=== PATIENT | female | born 1935 | race Two or more races ===

== ENCOUNTER 2019-04-01 11:23 | Inpatient (IN) | payer MEDICARE, MEDICAID ==
[~2019-04-01] VITALS: Ht 154.9 cm; Wt 60.9 kg
--- NOTE | 2019-04-01 11:45 | NUR ---
ED Nurse Note: Camilo brought in by caregiver from home due to being altered x 3 days; hx of dementia and bipolar. German speaking only. Patient awake, alert, oriented x 0. Patient does not know her name, year or place. Patient walks at home, but she needs assistance with dailiy living acitivities. Patient resting in bed with eyes closed. Regular, unlabored breathing noted. Patient has rash all over the body. Per caregiver, patient has been scratching it x 2-3 days. Reports no recent use of new drug or consuming new food. Reports no flu-like symptoms. 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 Bed in lowest position.
[2019-04-01 12:07] VITALS: BP 131/58
--- NOTE | 2019-04-01 12:40 | NUR ---
ED Nurse Note: per Bo caregiver, patient has no known allergy. [phone]
[2019-04-01] MEDS ORDERED: DiphenhydrAMINE 50mg/ml Inj IVP ONE (12:45)
[2019-04-01 12:51] LABS: APPEARANCE,URINE SLIGHTLY CLOUDY; BILIRUBIN, URINE NEGATIVE (NEGATIVE); GLUCOSE, URINE (UA) NEGATIVE (NEGATIVE); KETONES,URINE 3+ (NEGATIVE); LEUKOCYTE ESTERASE ,URINE 3+ (NEGATIVE); NITRITE,URINE NEGATIVE (NEGATIVE); PH,URINE 5 (4.5-8.0); PROTEIN,URINE 2+ (NEGATIVE); UROBILINOGEN,URINE 1 MG/DL (0.0-1.0)
[2019-04-01 12:55] LABS: HEMATOCRIT 42.5 % (37.0-47.0); HEMOGLOBIN 14.3 G/DL (12.0-16.0); MEAN CORPUSCULAR VOLUME 91 FL (80-99); PLATELET COUNT 63 K/UL (150-450); RED BLOOD COUNT 4.66 M/UL (4.20-5.40); RED CELL DISTRIBUTION WIDTH 13.7 % (11.6-14.8)
[2019-04-01 12:57] LABS: ANION GAP 8 mmol/L (5-15); BLOOD UREA NITROGEN 24 mg/dL (7-18); CALCIUM 8.6 MG/DL (8.5-10.1); CARBON DIOXIDE 33 MMOL/L (21-32); CHLORIDE 105 MMOL/L (98-107); COLOR,URINE YELLOW; CREATININE 1.1 MG/DL (0.55-1.30); POTASSIUM 3.7 MMOL/L (3.5-5.1); SODIUM 146 MMOL/L (136-145)
[2019-04-01 13:04] LABS: ALANINE AMINOTRANSFERASE 30 U/L (12-78); ALBUMIN 3.3 G/DL (3.4-5.0); ALBUMIN/GLOBULIN RATIO 0.8 (1.0-2.7); ALKALINE PHOSPHATASE 46 U/L (46-116); ASPARTATE AMINO TRANSFERASE 43 U/L (15-37); BILIRUBIN,TOTAL 0.4 MG/DL (0.2-1.0); PHOSPHORUS 3.1 MG/DL (2.5-4.9)
--- NOTE | 2019-04-01 13:10 | Emergency Room Report ---
History of Present Illness General Chief Complaint: Altered Level of Consciousness Source: Patient Present Illness HPI Disclaimer: Please note that this report is being documented using DRAGON technology. This can lead to erroneous entry secondary to incorrect interpretation by the dictating instrument. HPI: 83-year-old female presents for evaluation of altered mental status. She is primary British-speaking but son is present to provide history. She lives with her son who notes 3 days of worsening confusion. She has baseline dementia however she no longer remember some her children she has, notes some ataxia in her gait and believes he is a fall risk. He notes foul-smelling urine over the past few days. Denies fever, vomiting or diarrhea. PMH: Dementia, hypertension, bipolar, heart disease PSH: Reviewed Allergies: None reported Social Hx: None reported Allergies: Coded Allergies: No Known Allergies (Unverified , 04/01/19) Nursing Documentation-PMH Past Medical History: No History, Except For Review of Systems All Other Systems: limited - Could not obtain from patient. Physical Exam Vital Signs Date Time Temp Pulse Resp B/P (MAP) Pulse Ox O2 Delivery O2 Flow Rate FiO2 04/01/19 11:32 97.3 49 19 149/64 (92) 97 Room Air General: Awake, disoriented, somewhat agitated, trying to climb out of bed HEENT: NC/AT. EOMI. no nystagmus. PERRLA. Dry mucous membranes. Cardiovascular: RRR. S1 and S2 normal. No murmur appreciated Resp: Normal work of breathing. No cough, wheezing or crackles appreciated Abdomen: Abdomen is soft, nondistended. Tenderness to palpation in the lower pelvis. No rebound. No mass appreciated. Skin: Intact. No abrasions, laceration or rash over the exposed skin MSK: Normal tone and bulk. Moving all extremities. No obvious deformity. Neuro: Awake, disoriented. Difficulty following hands. Moving all extremities with adequate strength at the major muscle groups. Sensation appears to be intact. Cannot cooperate for ataxia testing. Medical Decision Making Diagnostic Impression: Primary Impression: Altered level of consciousness Additional Impression: UTI (urinary tract infection) ER Course 83-year-old female presents for evaluation of 3 days altered mental status. Differential includes was not limited to viral syndrome, urinary tract infection , occult head injury, electrolyte abnormality, dehydration, worsening dementia. We will start broad metabolic infectious work-up. Patient arrives with stable vital signs though slightly bradycardic. Laboratory Tests Test 04/01/19 12:00 04/01/19 15:30 White Blood Count 4.0 K/UL (4.8-10.8) L Red Blood Count 4.66 M/UL (4.20-5.40) Hemoglobin 14.3 G/DL (12.0-16.0) Hematocrit 42.5 % (37.0-47.0) Mean Corpuscular Volume 91 FL (80-99) Mean Corpuscular Hemoglobin 30.8 PG (27.0-31.0) Mean Corpuscular Hemoglobin Concent 33.7 G/DL (32.0-36.0) Red Cell Distribution Width 13.7 % (11.6-14.8) Platelet Count 63 K/UL (150-450) L Mean Platelet Volume 13.1 FL (6.5-10.1) H Neutrophils (%) (Auto) % (45.0-75.0) Lymphocytes (%) (Auto) % (20.0-45.0) Monocytes (%) (Auto) % (1.0-10.0) Eosinophils (%) (Auto) % (0.0-3.0) Basophils (%) (Auto) % (0.0-2.0) Differential Total Cells Counted 100 Neutrophils % (Manual) 71 % (45-75) Lymphocytes % (Manual) 14 % (20-45) L Monocytes % (Manual) 10 % (1-10) Eosinophils % (Manual) 5 % (0-3) H Basophils % (Manual) 0 % (0-2) Band Neutrophils 0 % (0-8) Platelet Estimate Decreased L Platelet Morphology Normal Red Blood Cell Morphology Normal Urine Color Yellow Urine Appearance Slightly cloudy Urine pH 5 (4.5-8.0) Urine Specific [place] 1.030 (1.005-1.035) Urine Protein 2+ (NEGATIVE) H Urine Glucose (UA) Negative (NEGATIVE) Urine Ketones 3+ (NEGATIVE) H Urine Blood 4+ (NEGATIVE) H Urine Nitrite Negative (NEGATIVE) Urine Bilirubin Negative (NEGATIVE) Urine Urobilinogen 1 MG/DL (0.0-1.0) H Urine Leukocyte Esterase 3+ (NEGATIVE) H Urine RBC 5-10 /HPF (0 - 2) H Urine WBC 20-30 /HPF (0 - 2) H Urine Squamous Epithelial Cells Few /LPF (NONE/OCC) Urine Bacteria Few /HPF (NONE) Urine Mucus Many /LPF (NONE/OCC) H Sodium Level 146 MMOL/L (136-145) H Potassium Level 3.7 MMOL/L (3.5-5.1) Chloride Level 105 MMOL/L (98-107) Carbon Dioxide Level 33 MMOL/L (21-32) H Anion Gap 8 mmol/L (5-15) Blood Urea Nitrogen 24 mg/dL (7-18) H Creatinine 1.1 MG/DL (0.55-1.30) Estimate Glomerular Filtration Rate mL/min (>60) Glucose Level 130 MG/DL (74-106) H Calcium Level 8.6 MG/DL (8.5-10.1) Phosphorus Level 3.1 MG/DL (2.5-4.9) Magnesium Level 2.3 MG/DL (1.8-2.4) Total Bilirubin 0.4 MG/DL (0.2-1.0) Aspartate Amino Transferase (AST) 43 U/L (15-37) H Alanine Aminotransferase (ALT) 30 U/L (12-78) Alkaline Phosphatase 46 U/L (46-116) Total Protein 7.5 G/DL (6.4-8.2) Albumin 3.3 G/DL (3.4-5.0) L Globulin 4.2 g/dL Albumin/Globulin Ratio 0.8 (1.0-2.7) L Lipase 136 U/L (73-393) Troponin I 0.000 ng/mL (0.000-0.056) EKG Diagnostic Results EKG Time: 11:51 Rate: bradycardiac Rhythm: NSR ST Segments: no acute changes Other Impression Sinus rhythm, borderline left axis, normal intervals, nonspecific ST changes Rhythm Strip Diag. Results Rhythm Strip Time: 11:51 EP Interpretation: yes Rate: 50 Rhythm: NSR, no PVC's, no ectopy Reevaluation Time: 15:00 Last Vital Signs Date Time Temp Pulse Resp B/P (MAP) Pulse Ox O2 Delivery O2 Flow Rate FiO2 04/01/19 12:07 58 14 131/58 95 Room Air 04/01/19 11:32 97.3 Reevaluation Impression Labs largely unremarkable aside from evidence of a urinary tract infection. The patient was given ceftriaxone. Her agitation did not allow her to participate in a CT scan. We will give some sedation and try again. Patient be admitted for altered mental status and treatment of urinary tract infection. 1650: CT scan shows evidence of prior vascular coiling but no acute ischemic changes or signs of trauma. Patient will be admitted for further evaluation of UTI and encephalopathy Disposition: ADMITTED INPATIENT Condition: Serious Referrals: NON PHYSICIAN (PCP) Ant Suarez MD Apr 01, 2019 13:10
[2019-04-01] MEDS ORDERED: UNOBMED (13:21)
[2019-04-01 13:30] VITALS: BP 127/97
[2019-04-01] MEDS ORDERED: cefTRIAXone 1 GM in NS 55 ML IVPB ONE (13:30)
[2019-04-01] MEDS ORDERED: LORazepam Inj 2mg/ml 1ml IV ONE (14:45)
[2019-04-01] MEDS ORDERED: SEROQUEL25 MG ORAL (15:07)
[2019-04-01] MEDS ORDERED: LISINOPRIL10 MG ORAL (15:07)
[2019-04-01] MEDS ORDERED: ATORVASTATIN CA40 MG ORAL (15:07)
[2019-04-01] MEDS ORDERED: LITHIUM CARBON300 MG ORAL (15:07)
[2019-04-01] MEDS ORDERED: LEVETIRACETAM500 MG ORAL (15:07)
[2019-04-01] MEDS ORDERED: DEPAKOTE250 MG PO (15:07)
[2019-04-01] MEDS ORDERED: PLAVIX75 MG ORAL (15:07)
[2019-04-01] MEDS ORDERED: SPIRONOLACTONE100 MG ORAL (15:08)
--- NOTE | 2019-04-01 15:08 | NUR ---
ED Nurse Note: RN obtained medication list from oB caregiver @ [phone].
--- NOTE | 2019-04-01 15:33 | NUR ---
ED Nurse Note: troponin sent to lab.
--- NOTE | 2019-04-01 15:46 | Diagnostic Imaging Report ---
Indications: Altered mental status Technique: Spiral acquisitions obtained through the brain. Angled axial and coronal 5 x 5 mm slices were reconstructed. Total dose length product 1260 mGycm. CTDI vol(s) 60 mGy. Dose reduction achieved using automated exposure control Comparison: None. Findings: What are probably vascular embolic coils are seen in the region of the cavernous sinus on the right. This throws off streak artifact which may obscure pathology and surrounding structures. No acute intracranial hemorrhage or edema. No mass effect or midline shift. There is age-related enlargement of the ventricles and extra axial CSF spaces. There is periventricular deep white matter low-attenuation, consistent with chronic microvascular ischemic change. The calvarium is intact. 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 There is evidence of prior right optic globe surgery. The visualized sinuses are clear. The calvarium is intact. Impression: Evidence of prior vascular coiling in the right cavernous sinus region. 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
[2019-04-01 16:22] VITALS: BP 136/60
--- NOTE | 2019-04-01 18:00 | NUR ---
ED Nurse Note: patient has been transferred to 2E with all of her belongings on ACLS protocol. report given to Helen VOSS, endorsed all plan of care
[2019-04-01 19:00] VITALS: BP 142/90
--- NOTE | 2019-04-01 19:50 | NUR ---
OBTAINED REPORT FROM FAMILIA NIELSEN. PT IS A NEW ADMISSION, SHE IS RESTING IN BED. NO APPARENT DISTRESS.
--- NOTE | 2019-04-01 19:51 | NUR ---
HAND-OFF: Report given to GIA Nieves.
--- NOTE | 2019-04-01 20:50 | NUR ---
SPOKE WITH MD VALLADARES AND GIVEN FULL REPORT ON NEW ADMISSION.OBTAINED ADMITTING ORDERS (ON FILE). ALL ORDERS CARRIED OUT.
--- NOTE | 2019-04-01 21:00 | NUR ---
SPOKE WITH MD HOFFMAN AND GIVEN FULL REPORT. OBTAINED NEW ORDERS AND CARRIED OUT: REMERON 15MG PO QHS AND ATIVAN 1MG PO Q6HR PRN AGITATION, DISCONTINUE 1:1 SITTER, AND START BILATERAL WRIST SOFT RESTRAINTS (PT CONFUSED,ATTEMPTING TO GET OOB WITHOUT ASSISTANCE, AND PULL OUT IV). FALL RISK PRECAUTIONS IN PLACE AT ALL TIMES. FREQUENT ROUNDING DONE.
[2019-04-01] MEDS: LORazepam 1mg tab ORAL PRN (22:35)
[2019-04-02] VITALS: BP 146/71
[2019-04-02 04:00] VITALS: BP 132/64
--- NOTE | 2019-04-02 04:15 | History and Physical Report ---
DATE OF ADMISSION: 04/01/2019 HISTORY OF PRESENT ILLNESS: The patient is a poor historian and is admitted for ataxia as well as for urinary tract infection. The patient is becoming more confused for the past couple of days. The patient does have baseline dementia. The patient also has been ataxic, at fall risk. Also, has a foul-smelling urine. Denies nausea, vomiting, or diarrhea. Denies fever or chills. Denies shortness of breath. Denies cough. The patient is admitted for UTI, ataxia, rule out fall risk. PAST MEDICAL HISTORY: Dementia, hypertension, bipolar, coronary artery disease, hyperlipidemia, and seizure disorder. PAST SURGICAL HISTORY: None. ALLERGIES: No known allergies. SOCIAL HISTORY: No history of smoking, alcohol, or illicit drugs. FAMILY HISTORY: Noncontributory. MEDICATIONS: Seroquel, lisinopril, Keppra, Depakote, Plavix, and Lipitor. REVIEW OF SYSTEMS: HEENT: Denies headache. RESPIRATORY: Denies shortness of breath. Denies cough. CARDIOVASCULAR: Denies chest pain. GASTROINTESTINAL: Denies nausea, vomiting, or diarrhea. EXTREMITIES: Denies pain in lower extremities. CENTRAL NERVOUS SYSTEM: Denies change in speech pattern; however, the patient is a poor historian. PHYSICAL EXAMINATION: VITAL SIGNS: Temperature is 97.3, pulse is 71, and blood pressure 127/97. HEENT: PERRLA. NECK: Supple. No lymphadenopathy. CHEST: Clear to auscultation. CARDIOVASCULAR: Regular rate and rhythm. No murmurs or extra sounds. GASTROINTESTINAL: Soft, nontender, nondistended. No organomegaly. EXTREMITIES: No edema. Reflexes in both sides. Oriented to name. LABORATORY DATA: Basically, the patient was found to have UTI. WBC of 4, hemoglobin 14.3, and platelets of 63,000. Sodium 146, potassium of 3.7, chloride 105, BUN of 24, creatinine 1.1, and glucose of 130. ASSESSMENT AND PLAN: UTI, ataxia, altered mental status, confused. I have asked Dr. Suarez and Dr. Naveen Walker to see the patient for agitation as well as for the treatment of the urinary tract infection and for altered mental status workup. Edwar Richardson M.D. DR: Patito JOB#: [id number] CC:
--- NOTE | 2019-04-02 05:40 | NUR ---
LEFT MESSAGE WITH MD Alka ALMAGUER TO MAKE AWARE OF ID CONSULT PER MD VALLADARES ORDER. CONTACT INFO FOR TELE UNIT PROVIDED.
--- NOTE | 2019-04-02 07:05 | NUR ---
GAVE FULL REPORT TO JEY RN. PT IN NO APPARENT DISTRESS.
--- NOTE | 2019-04-02 07:15 | NUR ---
NURSE NOTES: Received report from Madie NIELSEN. Pt asleep and in bed and responsive to tactile stimuli. No c/o pain. Bed in lowest position and locked. Side railsx3 up for safety. bilateral soft wrist Restraint intact and patent. Sinus rhythm. On room air. Call light within easy reach. Will continue to plan of care.
[2019-04-02 07:32] LABS: ANION GAP 9 mmol/L (5-15); BLOOD UREA NITROGEN 20 mg/dL (7-18); CALCIUM 8.2 MG/DL (8.5-10.1); CARBON DIOXIDE 31 MMOL/L (21-32); CHLORIDE 106 MMOL/L (98-107); CREATININE 0.9 MG/DL (0.55-1.30); POTASSIUM 3.1 MMOL/L (3.5-5.1); SODIUM 146 MMOL/L (136-145)
[2019-04-02 07:33] LABS: HEMATOCRIT 41.3 % (37.0-47.0); HEMOGLOBIN 13.7 G/DL (12.0-16.0); MEAN CORPUSCULAR VOLUME 92 FL (80-99); PLATELET COUNT 59 K/UL (150-450); RED BLOOD COUNT 4.47 M/UL (4.20-5.40); RED CELL DISTRIBUTION WIDTH 13.1 % (11.6-14.8); WHITE BLOOD COUNT 3.2 K/UL (4.8-10.8)
[2019-04-02 08:00] VITALS: BP 156/81
[2019-04-02] MEDS: LORazepam 1mg tab ORAL PRN (08:50)
[2019-04-02] MEDS ORDERED: OLANZapine 2.5mg tab ORAL PRN (11:00)
--- NOTE | 2019-04-02 11:07 | NUR ---
CASE MANAGEMENT: 83 Y/O FEMALE FROM HOME. CC: PER [facility] CONFUSION AND SMELLY URINE. SI: ALOC. UTI 97.3 71 19 127/90 98% ON RA WBC 4.0 PLT 63 EOSINOPHILS 5 PROTEIN 2+ KETONES 3+ TROPONIN 0.000 NA 146 BUN 24 ALBUMIN 3.3 IS: URINE CULTURES SENT ROCEPHIN [address] HEAD NEGATIVE ~~~~TELEMETRY 2 EAST
[2019-04-02 12:00] VITALS: BP 113/61
--- NOTE | 2019-04-02 12:56 | Consultation ---
History of Present Illness General Chief Complaint: Altered Level of Consciousness Present Illness Allergies: Coded Allergies: No Known Allergies (Unverified , 04/01/19) Medication History Scheduled Atorvastatin Calcium* (Atorvastatin Calcium*), 40 MG ORAL BEDTIME, (Reported) Clopidogrel Bisulfate* (Plavix*), 75 MG ORAL DAILY, (Reported) Divalproex Sodium* (Depakote*), 500 MG PO Q12HR, (Reported) Levetiracetam* (Levetiracetam*), 500 MG ORAL TWICE A DAY, (Reported) Lisinopril* (Lisinopril*), 10 MG ORAL BID, (Reported) Rudd Carbonate* (Rudd*), 300 MG ORAL BEDTIME, (Reported) Quetiapine Fumarate* (Seroquel*), 50 MG ORAL BEDTIME, (Reported) Spironolactone* (Spironolactone*), 12.5 MG ORAL DAILY, (Reported) Miscellaneous Medications Unable to Obtain Medications (Unable To Obtain Meds), Unknown Dose, (Reported) Patient History Healthcare decision maker LISA AMARAL (PRIMARY CAREGIVER) Resuscitation status Do Not Resuscitate Advanced Directive on File No Physical Exam Last 24 Hour Vital Signs Date Time Temp Pulse Resp B/P (MAP) Pulse Ox O2 Delivery O2 Flow Rate FiO2 04/02/19 12:00 98.4 68 18 113/61 (78) 98 04/02/19 09:00 Room Air 04/02/19 08:00 97.3 71 18 156/81 (106) 96 04/02/19 08:00 66 04/02/19 04:10 68 04/02/19 04:00 98.0 63 20 132/64 (86) 97 04/02/19 00:00 98.0 52 18 146/71 (96) 97 04/02/19 00:00 51 04/01/19 21:00 Room Air 04/01/19 21:00 46 04/01/19 21:00 Room Air 04/01/19 19:00 98.1 56 20 142/90 (107) 97 04/01/19 18:00 97.3 52 11 136/60 100 Room Air 04/01/19 16:22 97.3 52 11 136/60 100 Room Air 04/01/19 13:30 97.3 71 19 127/97 98 Room Air Intake and Output 04/01/19 04/02/19 19:00 07:00 Output Total 10 ml Balance -10 ml Output Urine Total 10 ml # Voids 1 Laboratory Tests Test 04/01/19 15:30 04/02/19 05:30 Troponin I 0.000 ng/mL (0.000-0.056) White Blood Count 3.2 K/UL (4.8-10.8) L Red Blood Count 4.47 M/UL (4.20-5.40) Hemoglobin 13.7 G/DL (12.0-16.0) Hematocrit 41.3 % (37.0-47.0) Mean Corpuscular Volume 92 FL (80-99) Mean Corpuscular Hemoglobin 30.7 PG (27.0-31.0) Mean Corpuscular Hemoglobin Concent 33.2 G/DL (32.0-36.0) Red Cell Distribution Width 13.1 % (11.6-14.8) Platelet Count 59 K/UL (150-450) L Mean Platelet Volume 14.9 FL (6.5-10.1) H Neutrophils (%) (Auto) % (45.0-75.0) Lymphocytes (%) (Auto) % (20.0-45.0) Monocytes (%) (Auto) % (1.0-10.0) Eosinophils (%) (Auto) % (0.0-3.0) Basophils (%) (Auto) % (0.0-2.0) Differential Total Cells Counted 100 Neutrophils % (Manual) 73 % (45-75) Lymphocytes % (Manual) 22 % (20-45) Monocytes % (Manual) 3 % (1-10) Eosinophils % (Manual) 2 % (0-3) Basophils % (Manual) 0 % (0-2) Band Neutrophils 0 % (0-8) Platelet Estimate Decreased L Platelet Morphology Normal Red Blood Cell Morphology Normal Sodium Level 146 MMOL/L (136-145) H Potassium Level 3.1 MMOL/L (3.5-5.1) L Chloride Level 106 MMOL/L (98-107) Carbon Dioxide Level 31 MMOL/L (21-32) Anion Gap 9 mmol/L (5-15) Blood Urea Nitrogen 20 mg/dL (7-18) H Creatinine 0.9 MG/DL (0.55-1.30) Estimat Glomerular Filtration Rate mL/min (>60) Glucose Level 71 MG/DL (74-106) L Calcium Level 8.2 MG/DL (8.5-10.1) L Height (Feet): 5 Height (Inches): 1.00 Weight (Pounds): 130 Medications Current Medications Medications (Trade) Dose Ordered Sig/Lorie Route PRN Reason Start Time Stop Time Status Last Admin Dose Admin Acetaminophen (Tylenol) 650 mg Q6H PRN ORAL Mild Pain/Temp > 100.5 04/01/19 20:50 05/01/19 20:49 Ceftriaxone Sodium 1 gm/ Dextrose 55 ml @ 110 mls/hr Q24H IVPB 04/02/19 14:00 04/09/19 13:59 Lorazepam (Ativan) 1 mg Q6H PRN ORAL Agitation 04/01/19 21:00 04/08/19 20:59 04/02/19 08:50 Mirtazapine (Remeron) 15 mg BEDTIME ORAL 04/01/19 21:00 05/01/19 20:59 04/01/19 22:35 Olanzapine (ZyPREXA) 2.5 mg Q6H PRN ORAL agitation 04/02/19 11:00 05/02/19 10:59 Potassium Chloride 100 ml @ 100 mls/hr Q1HR IVPB 04/02/19 11:00 04/02/19 14:59 04/02/19 12:17 Assessment/Plan Assessment/Plan: Hematology Consultation CLIFF MD: Edwar Pang RFC: Leukopenia and Low plts DOS: 04/02/2019 HPI: 83-year-old female presents for evaluation of altered mental status. She is primary Azeri-speaking but son is present to provide history. She lives with her son who notes 3 days of worsening confusion. She has baseline dementia however she no longer remember some her children she has, notes some ataxia in her gait and believes he is a fall risk. He notes foul-smelling urine over the past few days. Denies fever, vomiting or diarrhea. She again remains extremely confused I interviewed her in indonesian and able to illicit only minimal info, i ordered hepatitis and hiv panel for her underlying leukpenia and worsening platelet counts. PMH: Dementia, hypertension, bipolar, heart disease PSH: Reviewed Allergies: None reported Social Hx: None reported Allergies: Coded Allergies: No Known Allergies (Unverified , 04/01/19) Past Medical History: No History, Except For ROS General: Denies fatigue, fever, chills, weight loss; + weight gain as above HENT: Denies oral sores, neck masses, nasal d/c, hearing problems Vison: Denies change in vision, eye pain, redness, discharge Cardiac: As above Pulmonary: As above GI: Denies heart burn, swallowing difficulty, abdominal pain, diarrhea, constipation : As per HPI Neuro: Denies seizure, weakness, numbness Endo: Denies heat/cold intolerance, weight changes, polyuria, polydipsia Heme/Onc: Denies unusual bleeding, bruising, clotting MSK: Denies join pain, swelling, muscle aches Mental Health: Denies anxiets PE: Vitals: reviewed General Appearance: NAD HEENT: normocephalic, atraumatic Neck: non-tender, normal alignment Respiratory/Chest: normal breath sounds bilaterally Cardiovascular/Chest: normal peripheral pulses, normal rate Abdomen: normal bowel sounds, soft, nontender Extremities: normal range of motion +++ upper extremity contractures Labs: reviewed Imaging: noted Assessment and Recs: # Leukopenia -- multiple etiologies could be related to underlying liver disease , medication-induced, infection versus viral syndrome --> in this case likely due to UTI --> peripheral smear has been ordered and does not show significant abnormalities --> Medications have been reviewed --> Continue to monitor for improvement, trend cbc --> Hep panel and HIV have been ordered --> US abd ordered to r/o cirrhosis and hepatosplenomegaly --> reverse isolation if ANC is <2000 --> Give neupogen if ANC <1000 --> trend 4-->3.2 # Thrombocytopenia - potential causes multifactorial, evaluate liver and viral etiologies to begin, also could be related to underlying medications patient has received. --> Hep panel and HIV ordered --> US abd to evaluate for cirrhosis and hsm ordered --> Peripheral smear ordered to evaluate for blasts /schistocytes --> abx and other meds have been reviewed --> ok for ppx if plt >50k w/ either heparin or lovenox --> Transfuse if Plt < 20k and fever, or if Plt < 10k without fever --> plt trend 62-->53k --> per id # Altered level of consciousness --> likely due to uti --> s/p abx --> Dr. Daniela andujar # UTI (urinary tract infection) # Slightly bradycardic. # Dvt ppx scds The timing of this note does not necessarily reflect the time of the patient was seen. Greatly appreciate consultation. Albert Villegas MD Apr 02, 2019 12:56
--- NOTE | 2019-04-02 13:33 | NUR ---
NURSE NOTES:WOUND CARE NOTES: Pt admitted with generalized rash in clusters trunk ,back bilat upper and Bilat lower ext. Some of rash noted to red and pustular and others are dry and scabbed . Pt observed scratching at areas within reach of pt. Small black droppings noted in bed. Non-blanching erythema noted to R and L elbows. Partial thickness pressure injury noted to sacrococcygeal area. Base of wound is moist and viable.(L)1.7cm x (W)1.5cm. Non-blanching erythema without induration periwound. Non-blanching erythema without induration or fluctuance R and L heels. Primary nurse in attendance during skin assessment and is aware of skin findings. Tx.plan:Apply Cavilon Skin Barrier to R and L elbows . Cover each elbow with Optifoam drsg. Change every 7 days and prn. Apply Moisture Barrier Paste to Sacrum. Cover with Optifoam drsg. Change every 3 days and prn. Apply Cavilon Skin Barrier to R and L heels. Cover each heel with Optifoam drsg.Change every 7 days and prn. Reposition at least every 2hours or as tolerated. Off-load heels with pillow. ID has been notified by Primary nurse. Orders for Application of Elimite pending.
[2019-04-02] MEDS: cefTRIAXone 1 GM in D5W 55 ML IVPB SCH (14:15)
--- NOTE | 2019-04-02 14:49 | Diagnostic Imaging Report ---
Indication: Abnormal liver function tests, abnormal renal function tests, microhematuria Technique: Zimmerman-scale and duplex images of the upper abdomen were obtained Comparison: none Findings: Exam is limited due to body habitus, bowel gas, and limited ability of the patient to cooperate Gallbladder could not be visualized. Sonographic Saucedo's sign could not be assessed due to lack of gallbladder visualization Common bile duct could not be visualized. No intrahepatic biliary ductal dilatation. Liver demonstrates normal echogenicity, no focal abnormality. Note that portions of the left hepatic lobe cannot be visualized Portal vein and hepatic veins are patent. Pancreas is unremarkable. Spleen is unremarkable. Left kidney measures 9.5 cm in length. Right kidney measures 10.3 cm length. Both kidneys demonstrate normal echogenicity. There is no hydronephrosis. There are small bilateral renal cysts. There are left renal parapelvic cysts versus mild hydronephrosis . Abdominal aorta is partially obscured by bowel gas, visualized portions are non-aneurysmal . Impression: Very limited exam as described, with resultant nonvisualization of the gallbladder, common bile duct, portions of the left hepatic lobe, portions of the abdominal aorta Mild left hydronephrosis versus a small renal parapelvic cysts Bilateral renal cortical cysts
--- NOTE | 2019-04-02 15:03 | Consultation ---
Consult Note Consult Note asked to eval for electrolyte and fluid management Altered Level of Consciousness HPI: 83-year-old female presents for evaluation of altered mental status. She is primary American-speaking but son is present to provide history. She lives with her son who notes 3 days of worsening confusion. She has baseline dementia however she no longer remember some her children she has, notes some ataxia in her gait and believes he is a fall risk. He notes foul-smelling urine over the past few days. Denies fever, vomiting or diarrhea. PMH: Dementia, hypertension, bipolar, heart disease Allergies: No Known Allergies (Unverified , 04/01/19) examined appears confused . Assessment/Plan Electrolyte imbalance Encephalopathy UTI Dehydration hydrate K supplement Antibiotics Per orders Roe Avelar MD Apr 02, 2019 15:03
[2019-04-02 16:00] VITALS: BP 139/74
[2019-04-02] MEDS: D5 1/2NS w/KCl 20mEq 1,000 ML IV SCH (16:45)
--- NOTE | 2019-04-02 16:45 | Consultation ---
DATE OF CONSULTATION: 04/02/2019 INFECTIOUS DISEASE CONSULTATION CONSULTING PHYSICIAN: Naveen Walker M.D. PRIMARY ATTENDING: Edwar Richardson M.D. REASON FOR CONSULT: UTI, rash likely scabies. HISTORY OF PRESENT ILLNESS: This is an 83-year-old female admitted yesterday from home because of altered mental status, worsening of confusion, ataxia, and difficulty with walking. Had foul smelling urine in a couple of days. Currently, she is confused on restraints. PAST MEDICAL HISTORY: Significant for hypertension, bipolar disorder was on lithium, dementia, heart disease. ALLERGIES: No known drug allergies. MEDICATIONS: Ceftriaxone, permethrin, potassium chloride, Zyprexa, lorazepam, Remeron, Tylenol. Got a dose of ceftriaxone yesterday in the ER. SOCIAL HISTORY: Very limited. Single. Lives at home with family. REVIEW OF SYSTEMS: Unobtainable. PHYSICAL EXAMINATION: VITAL SIGNS: Temperature 98.4, pulse 68, blood pressure 113/61. GENERAL APPEARANCE: Well developed, no acute distress. HEAD AND NECK: [place] conjunctiva. HEART: Normal rate. LUNGS: Clear. ABDOMEN: Soft, nontender. EXTREMITIES: Has no edema. SKIN: Rash mainly in torso and upper thigh that seems excoriated, likely papular. LABORATORY AND DIAGNOSTIC DATA: WBC 3.2, hemoglobin 13.7, platelets 59. Sodium 146, potassium 3.1, chloride 106, bicarbonate 31, BUN 20, creatinine 0.9, glucose is 71. UA showed wbc of 20 to 30, leukocyte esterase 3+, ketones 3+. 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 IMPRESSION: Pyuria, may have UTI. So far urine culture is negative. Has rash, likely scabies. Has altered mental status, dementia, hypertension, bipolar disorder. She was on lithium at home. We will try to rule out lithium toxicity. Has leukocytopenia and thrombocytopenia. RECOMMENDATION: We will give the patient a dose of Elimite. We will continue ceftriaxone. If the culture was negative, we will discontinue antibiotic soon. We will check the lithium level. At the end of my exam, I thank Dr. Richardson for involving me in the care of this patient. Naveen Walker M.D. DR: YUDITH JOB#: [id number] CC: SUSIE
--- NOTE | 2019-04-02 19:38 | NUR ---
HAND-OFF: Report given to Leela NIELSEN. Pt remains stable.
--- NOTE | 2019-04-02 19:42 | NUR ---
NURSE NOTES: Received report from GIA Hawley. Pt is sleeping at this time during my initial rounding. resp even, no apparent discomfort noted. side rails padded, call light w/in reach.
[2019-04-02 20:00] VITALS: BP 129/63
--- NOTE | 2019-04-02 21:35 | General Progress Note ---
Assessment/Plan Problem List: (1) Altered level of consciousness ICD Codes: R40.4 - Transient alteration of awareness SNOMED: 8921357 (2) Confused ICD Codes: R41.0 - Disorientation, unspecified SNOMED: 493018740 (3) Agitation ICD Codes: R45.1 - Restlessness and agitation SNOMED: 791928574 (4) UTI (urinary tract infection) ICD Codes: N39.0 - Urinary tract infection, site not specified SNOMED: 89335978 Status: progressing Assessment/Plan: afebrile nac reviewed chart and labs ataxia uti needs snf placement Subjective ROS Limited/Unobtainable: Yes Allergies: Coded Allergies: No Known Allergies (Unverified , 04/01/19) Objective Last 24 Hour Vital Signs Date Time Temp Pulse Resp B/P (MAP) Pulse Ox O2 Delivery O2 Flow Rate FiO2 04/02/19 16:00 97.3 78 18 139/74 (95) 94 04/02/19 16:00 59 04/02/19 12:00 57 04/02/19 12:00 98.4 68 18 113/61 (78) 98 04/02/19 09:00 Room Air 04/02/19 08:00 97.3 71 18 156/81 (106) 96 04/02/19 08:00 66 04/02/19 04:10 68 04/02/19 04:00 98.0 63 20 132/64 (86) 97 04/02/19 00:00 98.0 52 18 146/71 (96) 97 04/02/19 00:00 51 Intake and Output 04/01/19 04/02/19 19:00 07:00 Output Total 10 ml Balance -10 ml Output Urine Total 10 ml # Voids 1 Laboratory Tests 04/02/19 05:30: White Blood Count 3.2L, Red Blood Count 4.47, Hemoglobin 13.7, Hematocrit 41.3, Mean Corpuscular Volume 92, Mean Corpuscular Hemoglobin 30.7, Mean Corpuscular Hemoglobin Concent 33.2, Red Cell Distribution Width 13.1, Platelet Count 59L, Mean Platelet Volume 14.9H, Neutrophils (%) (Auto) , Lymphocytes (%) (Auto) , Monocytes (%) (Auto) , Eosinophils (%) (Auto) , Basophils (%) (Auto) , Differential Total Cells Counted 100, Neutrophils % (Manual) 73, Lymphocytes % ( Manual) 22, Monocytes % (Manual) 3, Eosinophils % (Manual) 2, Basophils % ( Manual) 0, Band Neutrophils 0, Platelet Estimate DecreasedL, Platelet Morphology Normal, Red Blood Cell Morphology Normal, Sodium Level 146H, Potassium Level 3.1L, Chloride Level 106, Carbon Dioxide Level 31, Anion Gap 9, Blood Urea Nitrogen 20H, Creatinine 0.9, Estimat Glomerular Filtration Rate , Glucose Level 71L, Calcium Level 8.2L, Hepatitis A IgM Antibody [Pending], Hepatitis B Surface Antigen [Pending], Hepatitis B Core IgM Antibody [Pending], Hepatitis C Antibody [Pending], HIV (1&2) Antibody Rapid Negative 04/02/19 14:35: [place] Level [Pending] Height (Feet): 5 Height (Inches): 1.00 Weight (Pounds): 130 Neck: supple Cardiovascular: normal rate Respiratory/Chest: lungs clear Abdomen: soft Edwar Richardson MD Apr 02, 2019 21:35
--- NOTE | 2019-04-02 22:00 | NUR ---
NURSE NOTES: Pt's HR fluctuating low 40's to 55, pt responds with touch stimuli, grimaced when repositioned arms. no apparent acute CV distress noted. continue to monitor.
[2019-04-03] VITALS: BP 132/64
--- NOTE | 2019-04-03 00:30 | Consultation ---
DATE OF CONSULTATION: 04/02/2019 CONSULTING PHYSICIAN: Champ Suarez M.D. HISTORY OF PRESENT ILLNESS: This is an 83-year-old female with a history of dementia and UTI who has been admitted to the hospital due to altered mental status. Upon evaluation, the patient is calmer. The patient was admitted last night. She was agitated. Refused psychotropic medication for agitation. During evaluation, the patient is confused. Pashto speaking. Unable to provide any meaningful history. Continues to . PAST PSYCHIATRIC HISTORY: Dementia and bipolar disorder. PAST MEDICAL HISTORY: Heart disease and UTI. ALLERGIES: No known drug allergies. SUBSTANCE ABUSE HISTORY: No known history of illicit drug use or alcohol. MENTAL STATUS EXAMINATION: The patient is alert, confused, and disoriented. Mood is agitated. Affect is flat. Thought process, there is a paucity of thought content. Thought content, no suicidal or homicidal ideation. Cognition is impaired. Insight and judgment are impaired. ASSESSMENT: [place] I Dementia with behavior disturbance. [place] II Deferred. [place] III UTI. [place] IV Low. [place] V 20. PLAN: 1. Zyprexa 2.5 q.6 h. 2. Remeron 50 mg p.o. at bedtime. 3. Ativan p.r.n. 4. The patient lacks capacity to make decision. 5. Discussed with the nurse. Champ Suarez M.D. DR: JOSH JOB#: [id number] CC:
[2019-04-03 04:00] VITALS: BP 151/58
[2019-04-03] MEDS: D5 1/2NS w/KCl 20mEq 1,000 ML IV SCH ×3 (04:44→18:59)
[2019-04-03 06:10] LABS: HEMATOCRIT 39.4 % (37.0-47.0); HEMOGLOBIN 13.3 G/DL (12.0-16.0); MEAN CORPUSCULAR VOLUME 92 FL (80-99); PLATELET COUNT 51 K/UL (150-450); RED BLOOD COUNT 4.28 M/UL (4.20-5.40); RED CELL DISTRIBUTION WIDTH 12.9 % (11.6-14.8); WHITE BLOOD COUNT 3.8 K/UL (4.8-10.8)
[2019-04-03 06:49] LABS: ALANINE AMINOTRANSFERASE 32 U/L (12-78); ALBUMIN 2.9 G/DL (3.4-5.0); ALBUMIN/GLOBULIN RATIO 0.8 (1.0-2.7); ALKALINE PHOSPHATASE 41 U/L (46-116); ANION GAP 6 mmol/L (5-15); ASPARTATE AMINO TRANSFERASE 43 U/L (15-37); BILIRUBIN,TOTAL 0.4 MG/DL (0.2-1.0); BLOOD UREA NITROGEN 11 mg/dL (7-18); CALCIUM 7.5 MG/DL (8.5-10.1); CARBON DIOXIDE 28 MMOL/L (21-32); CHLORIDE 107 MMOL/L (98-107); CHOLESTEROL 165 MG/DL (< 200); CREATININE 0.8 MG/DL (0.55-1.30); GAMMA GLUTAMYL TRANSPEPTIDASE 15 U/L (5-85); HDL CHOLESTEROL 93 MG/DL (40-60); PHOSPHORUS 2.2 MG/DL (2.5-4.9); POTASSIUM 3.7 MMOL/L (3.5-5.1); SODIUM 141 MMOL/L (136-145); TRIGLYCERIDES 61 MG/DL (30-150)
--- NOTE | 2019-04-03 07:05 | NUR ---
HAND-OFF: Report given to GIA Knight.
--- NOTE | 2019-04-03 07:05 | NUR ---
HAND-OFF: Report given to GIA Knight.
--- NOTE | 2019-04-03 07:49 | NUR ---
NURSE NOTES: pt. wakes up and opens her eyes when aroused. Pt is not complaining of pain. Pt on secured entrance monitor no signs of cardiac or respiratory distress at this time. Pt will be having breakfast. Pt bed in lowest position and locked. Call light within reach. will continue to monitor pt.
[2019-04-03 08:30] VITALS: BP 127/84
--- NOTE | 2019-04-03 10:45 | Infectious Diseases Prog Note ---
Assessment/Plan Assessment/Plan antibiotics : ceftriaxone A 1. UTI 2. hypertension 3. ? scabies s/p rx 4. thrombocytopenia 5, dementia 6. bipolar disorder P 1. continue ceftriaxone 2. will follow up cultures Subjective ROS Limited/Unobtainable: Yes Allergies: Coded Allergies: No Known Allergies (Unverified , 04/01/19) Objective Vital Signs Last 24 Hour Vital Signs Date Time Temp Pulse Resp B/P (MAP) Pulse Ox O2 Delivery O2 Flow Rate FiO2 04/03/19 08:30 97.8 67 20 127/84 (98) 97 04/03/19 08:25 Room Air 04/03/19 04:00 43 04/03/19 04:00 97.3 49 18 151/58 (89) 96 04/03/19 00:00 46 04/03/19 00:00 97.0 63 18 132/64 (86) 97 04/02/19 21:00 Room Air 04/02/19 20:00 61 04/02/19 20:00 97.5 66 20 129/63 (85) 99 04/02/19 16:00 97.3 78 18 139/74 (95) 94 04/02/19 16:00 59 04/02/19 12:00 57 04/02/19 12:00 98.4 68 18 113/61 (78) 98 Height (Feet): 5 Height (Inches): 1.00 Weight (Pounds): 130 Respiratory/Chest: lungs clear Cardiovascular: normal rate, regular rhythm, no gallop/murmur Abdomen: soft, non tender Extremities: no edema Skin: rash - erythematous Microbiology Date/Time Source Procedure Growth Status 04/01/19 12:00 Urine,Clean Catch Urine Culture - Preliminary NO GROWTH AFTER 24 HOURS Resulted Laboratory Tests Test 04/02/19 14:35 04/03/19 04:25 [place] Level Pending White Blood Count 3.8 K/UL (4.8-10.8) L Red Blood Count 4.28 M/UL (4.20-5.40) Hemoglobin 13.3 G/DL (12.0-16.0) Hematocrit 39.4 % (37.0-47.0) Mean Corpuscular Volume 92 FL (80-99) Mean Corpuscular Hemoglobin 31.1 PG (27.0-31.0) H Mean Corpuscular Hemoglobin Concent 33.8 G/DL (32.0-36.0) Red Cell Distribution Width 12.9 % (11.6-14.8) Platelet Count 51 K/UL (150-450) L Mean Platelet Volume 12.2 FL (6.5-10.1) H Neutrophils (%) (Auto) % (45.0-75.0) Lymphocytes (%) (Auto) % (20.0-45.0) Monocytes (%) (Auto) % (1.0-10.0) Eosinophils (%) (Auto) % (0.0-3.0) Basophils (%) (Auto) % (0.0-2.0) Differential Total Cells Counted 100 Neutrophils % (Manual) 67 % (45-75) Lymphocytes % (Manual) 23 % (20-45) Monocytes % (Manual) 8 % (1-10) Eosinophils % (Manual) 1 % (0-3) Basophils % (Manual) 1 % (0-2) Band Neutrophils 0 % (0-8) Platelet Estimate Decreased L Platelet Morphology Normal Acanthocytes 1+ Sodium Level 141 MMOL/L (136-145) Potassium Level 3.7 MMOL/L (3.5-5.1) Chloride Level 107 MMOL/L (98-107) Carbon Dioxide Level 28 MMOL/L (21-32) Anion Gap 6 mmol/L (5-15) Blood Urea Nitrogen 11 mg/dL (7-18) Creatinine 0.8 MG/DL (0.55-1.30) Estimat Glomerular Filtration Rate mL/min (>60) Glucose Level 116 MG/DL (74-106) H Hemoglobin A1c 6.7 % (4.3-6.0) H Uric Acid 2.4 MG/DL (2.6-7.2) L Calcium Level 7.5 MG/DL (8.5-10.1) L Phosphorus Level 2.2 MG/DL (2.5-4.9) L Magnesium Level 2.0 MG/DL (1.8-2.4) Total Bilirubin 0.4 MG/DL (0.2-1.0) Gamma Glutamyl Transpeptidase 15 U/L (5-85) Aspartate Amino Transf (AST/SGOT) 43 U/L (15-37) H Alanine Aminotransferase (ALT/SGPT) 32 U/L (12-78) Alkaline Phosphatase 41 U/L (46-116) L C-Reactive Protein, Quantitative < 0.4 mg/dL (0.00-0.90) Pro-B-Type Natriuretic Peptide 155 pg/mL (0-125) H Total Protein 6.7 G/DL (6.4-8.2) Albumin 2.9 G/DL (3.4-5.0) L Globulin 3.8 g/dL Albumin/Globulin Ratio 0.8 (1.0-2.7) L Triglycerides Level 61 MG/DL (30-150) Cholesterol Level 165 MG/DL (< 200) LDL Cholesterol 52 mg/dL (<100) HDL Cholesterol 93 MG/DL (40-60) H Cholesterol/HDL Ratio 1.8 (3.3-4.4) L Vitamin B12 Level > 2000 PG/ML (193-986) H Folate 23.0 NG/ML (8.6-58.9) Thyroid Stimulating Hormone (TSH) Pending Cortisol AM Sample Pending Current Medications Medications (Trade) Dose Ordered Sig/Lorie Route PRN Reason Start Time Stop Time Status Last Admin Dose Admin Acetaminophen (Tylenol) 650 mg Q6H PRN ORAL Mild Pain/Temp > 100.5 04/01/19 20:50 05/01/19 20:49 Ceftriaxone Sodium 1 gm/ Dextrose 55 ml @ 110 mls/hr Q24H IVPB 04/02/19 14:00 04/09/19 13:59 04/02/19 14:15 Dextrose/ Electrolytes 1,000 ml @ 75 mls/hr [id number] IV 04/02/19 16:00 05/02/19 15:59 04/03/19 04:44 Lorazepam (Ativan) 1 mg Q6H PRN ORAL Agitation 04/01/19 21:00 04/08/19 20:59 04/02/19 08:50 Mirtazapine (Remeron) 15 mg BEDTIME ORAL 04/01/19 21:00 05/01/19 20:59 04/01/19 22:35 Olanzapine (ZyPREXA) 2.5 mg Q6H PRN ORAL agitation 04/02/19 11:00 05/02/19 10:59 04/02/19 13:10 Potassium Phosphate 20 mm/ Sodium Chloride 281.6667 ml @ 46.944 m... ONCE ONCE IV 04/03/19 11:00 04/03/19 16:59 Rosario Altamirano MD Apr 03, 2019 10:45
[2019-04-03] MEDS ORDERED: Potassium Phosphate 20 MM in NS 275 ML IV ONE (11:00)
[2019-04-03 12:00] VITALS: BP 135/61
--- NOTE | 2019-04-03 13:46 | Nephrology Progress Note ---
Assessment/Plan Problem List: (1) UTI (urinary tract infection) (2) Dehydration (3) Electrolyte imbalance (4) Encephalopathy Assessment Electrolyte imbalance Encephalopathy UTI Dehydration Plan hydrate K supplement Antibiotics Per orders Subjective ROS Limited/Unobtainable: No Constitutional: Reports: malaise, weakness Objective Objective Last 24 Hour Vital Signs Date Time Temp Pulse Resp B/P (MAP) Pulse Ox O2 Delivery O2 Flow Rate FiO2 04/03/19 12:00 49 04/03/19 08:30 97.8 67 20 127/84 (98) 97 04/03/19 08:25 Room Air 04/03/19 08:00 38 04/03/19 04:00 43 04/03/19 04:00 97.3 49 18 151/58 (89) 96 04/03/19 00:00 46 04/03/19 00:00 97.0 63 18 132/64 (86) 97 04/02/19 21:00 Room Air 04/02/19 20:00 61 04/02/19 20:00 97.5 66 20 129/63 (85) 99 04/02/19 16:00 97.3 78 18 139/74 (95) 94 04/02/19 16:00 59 Intake and Output 04/02/19 04/03/19 19:00 07:00 Intake Total 1265 ml 930 ml Balance 1265 ml 930 ml Intake Oral 660 ml 30 ml IV Total 605 ml 900 ml # Voids 3 3 Laboratory Tests 04/02/19 14:35: [place] Level [Pending] 04/03/19 04:25: White Blood Count 3.8L, Red Blood Count 4.28, Hemoglobin 13.3, Hematocrit 39.4, Mean Corpuscular Volume 92, Mean Corpuscular Hemoglobin 31.1H, Mean Corpuscular Hemoglobin Concent 33.8, Red Cell Distribution Width 12.9, Platelet Count 51L, Mean Platelet Volume 12.2H, Neutrophils (%) (Auto) , Lymphocytes (%) (Auto) , Monocytes (%) (Auto) , Eosinophils (%) (Auto) , Basophils (%) (Auto) , Differential Total Cells Counted 100, Neutrophils % (Manual) 67, Lymphocytes % ( Manual) 23, Monocytes % (Manual) 8, Eosinophils % (Manual) 1, Basophils % ( Manual) 1, Band Neutrophils 0, Platelet Estimate DecreasedL, Platelet Morphology Normal, Acanthocytes 1+, Sodium Level 141, Potassium Level 3.7, Chloride Level 107, Carbon Dioxide Level 28, Anion Gap 6, Blood Urea Nitrogen 11 , Creatinine 0.8, Estimat Glomerular Filtration Rate , Glucose Level 116H, Hemoglobin A1c 6.7H, Uric Acid 2.4L, Calcium Level 7.5L, Phosphorus Level 2.2L, Magnesium Level 2.0, Total Bilirubin 0.4, Gamma Glutamyl Transpeptidase 15, Aspartate Amino Transf (AST/SGOT) 43H, Alanine Aminotransferase (ALT/SGPT) 32, Alkaline Phosphatase 41L, C-Reactive Protein, Quantitative < 0.4, Pro-B-Type Natriuretic Peptide 155H, Total Protein 6.7, Albumin 2.9L, Globulin 3.8, Albumin /Globulin Ratio 0.8L, Triglycerides Level 61, Cholesterol Level 165, LDL Cholesterol 52, HDL Cholesterol 93H, Cholesterol/HDL Ratio 1.8L, Vitamin B12 Level > 2000H, Folate 23.0, Thyroid Stimulating Hormone (TSH) [Pending], Cortisol AM Sample [Pending] Height (Feet): 5 Height (Inches): 1.00 Weight (Pounds): 130 General Appearance: no apparent distress, confused Cardiovascular: tachycardia Respiratory/Chest: decreased breath sounds Abdomen: soft Roe Avelar MD Apr 03, 2019 13:46
[2019-04-03] MEDS: cefTRIAXone 1 GM in D5W 55 ML IVPB SCH (14:20)
[2019-04-03 16:00] VITALS: BP 136/61
--- NOTE | 2019-04-03 16:24 | NUR ---
NURSE NOTES: pt had a soft BM applied barrier cream and optifoam to sacrum old healed wound.
--- NOTE | 2019-04-03 19:35 | NUR ---
NURSE NOTES: Received report from GIA Knight, patient in stable condition, AOx1, denies pain at this time, able to make needs known to a degree, on bilateral soft restraints, iV site on left upper arm g22, asymptomatic, intact, bed low&locked, side rails upx3, call light within reach, will continue to monitor and reassess.
--- NOTE | 2019-04-03 19:55 | NUR ---
HAND-OFF: Report given to Bacos/RN.
[2019-04-03 20:00] VITALS: BP 140/70
--- NOTE | 2019-04-03 20:06 | NUR ---
HAND-OFF: Report given to Chris/RN. Pt GTube will be replaced tomorrow. Central supply never sent 20g Gtube, endorsed to night RN to try to get Gtube for tomorrow's procedure.
--- NOTE | 2019-04-03 20:41 | General Progress Note ---
Assessment/Plan Problem List: (1) Altered level of consciousness ICD Codes: R40.4 - Transient alteration of awareness SNOMED: 7760928 (2) Confused ICD Codes: R41.0 - Disorientation, unspecified SNOMED: 948693314 (3) Agitation ICD Codes: R45.1 - Restlessness and agitation SNOMED: 526273665 (4) UTI (urinary tract infection) ICD Codes: N39.0 - Urinary tract infection, site not specified SNOMED: 97986084 Status: progressing Assessment/Plan: ataxia uti improving weak dc planning needs snf placement Subjective ROS Limited/Unobtainable: Yes Allergies: Coded Allergies: No Known Allergies (Unverified , 04/01/19) Objective Last 24 Hour Vital Signs Date Time Temp Pulse Resp B/P (MAP) Pulse Ox O2 Delivery O2 Flow Rate FiO2 04/03/19 16:00 97.3 73 19 136/61 (86) 95 04/03/19 12:00 49 04/03/19 12:00 97.0 54 18 135/61 (85) 97 04/03/19 08:30 97.8 67 20 127/84 (98) 97 04/03/19 08:25 Room Air 04/03/19 08:00 38 04/03/19 04:00 43 04/03/19 04:00 97.3 49 18 151/58 (89) 96 04/03/19 00:00 46 04/03/19 00:00 97.0 63 18 132/64 (86) 97 04/02/19 21:00 Room Air Intake and Output 04/02/19 04/03/19 19:00 07:00 Intake Total 1265 ml 930 ml Balance 1265 ml 930 ml Intake Oral 660 ml 30 ml IV Total 605 ml 900 ml # Voids 3 3 Laboratory Tests 04/03/19 04:25: White Blood Count 3.8L, Red Blood Count 4.28, Hemoglobin 13.3, Hematocrit 39.4, Mean Corpuscular Volume 92, Mean Corpuscular Hemoglobin 31.1H, Mean Corpuscular Hemoglobin Concent 33.8, Red Cell Distribution Width 12.9, Platelet Count 51L, Mean Platelet Volume 12.2H, Neutrophils (%) (Auto) , Lymphocytes (%) (Auto) , Monocytes (%) (Auto) , Eosinophils (%) (Auto) , Basophils (%) (Auto) , Differential Total Cells Counted 100, Neutrophils % (Manual) 67, Lymphocytes % ( Manual) 23, Monocytes % (Manual) 8, Eosinophils % (Manual) 1, Basophils % ( Manual) 1, Band Neutrophils 0, Platelet Estimate DecreasedL, Platelet Morphology Normal, Acanthocytes 1+, Sodium Level 141, Potassium Level 3.7, Chloride Level 107, Carbon Dioxide Level 28, Anion Gap 6, Blood Urea Nitrogen 11 , Creatinine 0.8, Estimat Glomerular Filtration Rate , Glucose Level 116H, Hemoglobin A1c 6.7H, Uric Acid 2.4L, Calcium Level 7.5L, Phosphorus Level 2.2L, Magnesium Level 2.0, Total Bilirubin 0.4, Gamma Glutamyl Transpeptidase 15, Aspartate Amino Transf (AST/SGOT) 43H, Alanine Aminotransferase (ALT/SGPT) 32, Alkaline Phosphatase 41L, C-Reactive Protein, Quantitative < 0.4, Pro-B-Type Natriuretic Peptide 155H, Total Protein 6.7, Albumin 2.9L, Globulin 3.8, Albumin /Globulin Ratio 0.8L, Triglycerides Level 61, Cholesterol Level 165, LDL Cholesterol 52, HDL Cholesterol 93H, Cholesterol/HDL Ratio 1.8L, Vitamin B12 Level > 2000H, Folate 23.0, Thyroid Stimulating Hormone (TSH) 126.520H, Cortisol AM Sample [Pending] Height (Feet): 5 Height (Inches): 1.00 Weight (Pounds): 130 Cardiovascular: normal rate Respiratory/Chest: lungs clear Edwar Richardson MD Apr 03, 2019 20:41
[2019-04-04] VITALS (8 sets, daily range): BP systolic 98–156; BP diastolic 44–79
[2019-04-04] MEDS: D5 1/2NS w/KCl 20mEq 1,000 ML IV SCH ×2 (02:20→14:33)
--- NOTE | 2019-04-04 07:24 | NUR ---
HAND-OFF: Report given to GIA Knight patient in stable condition, plan of care endorsed.
--- NOTE | 2019-04-04 07:45 | NUR ---
NURSE NOTES: pt. in bed and awake. Pt is on restrains however, Pt is still able to manage to take nursing informatics analyst off as well as IV. Will attempt to put another IV right now. Call light within reach. Bed is locked and in lowest position. Will continue to monitor pt and labs.
[2019-04-04 08:26] LABS: HEMATOCRIT 42.5 % (37.0-47.0); HEMOGLOBIN 14.2 G/DL (12.0-16.0); MEAN CORPUSCULAR VOLUME 93 FL (80-99); PLATELET COUNT 54 K/UL (150-450); RED BLOOD COUNT 4.58 M/UL (4.20-5.40); RED CELL DISTRIBUTION WIDTH 13.2 % (11.6-14.8); WHITE BLOOD COUNT 3.8 K/UL (4.8-10.8)
--- NOTE | 2019-04-04 11:13 | General Progress Note ---
Assessment/Plan Problem List: (1) Altered level of consciousness ICD Codes: R40.4 - Transient alteration of awareness SNOMED: 2133342 (2) Confused ICD Codes: R41.0 - Disorientation, unspecified SNOMED: 002171743 (3) Agitation ICD Codes: R45.1 - Restlessness and agitation SNOMED: 617678975 (4) UTI (urinary tract infection) ICD Codes: N39.0 - Urinary tract infection, site not specified SNOMED: 50077862 Status: progressing Assessment/Plan: itching ordered cream and informed id low platlet .no bleeding ataxia uti improving weak dc planning needs snf placement Subjective Allergies: Coded Allergies: No Known Allergies (Unverified , 04/01/19) Subjective itching Objective Last 24 Hour Vital Signs Date Time Temp Pulse Resp B/P (MAP) Pulse Ox O2 Delivery O2 Flow Rate FiO2 04/04/19 08:49 Room Air 04/04/19 08:00 96.9 48 20 131/61 (84) 94 04/04/19 04:00 47 04/04/19 04:00 98.0 51 20 103/57 (72) 97 04/04/19 00:00 42 04/04/19 00:00 98.2 48 20 156/79 (104) 97 04/03/19 23:31 Room Air 04/03/19 20:00 72 04/03/19 20:00 97.9 69 20 140/70 (93) 96 04/03/19 16:00 97.3 73 19 136/61 (86) 95 04/03/19 12:00 49 04/03/19 12:00 97.0 54 18 135/61 (85) 97 Intake and Output 04/03/19 04/04/19 18:59 06:59 Intake Total 75 ml Balance 75 ml IV Total 75 ml # Voids 5 Laboratory Tests 04/04/19 07:50: White Blood Count 3.8L, Red Blood Count 4.58, Hemoglobin 14.2, Hematocrit 42.5, Mean Corpuscular Volume 93, Mean Corpuscular Hemoglobin 31.1H, Mean Corpuscular Hemoglobin Concent 33.4, Red Cell Distribution Width 13.2, Platelet Count 54L, Mean Platelet Volume 14.7H, Neutrophils (%) (Auto) , Lymphocytes (%) (Auto) , Monocytes (%) (Auto) , Eosinophils (%) (Auto) , Basophils (%) (Auto) , Neutrophils % (Manual) [Pending], Lymphocytes % (Manual) [Pending], Platelet Estimate [Pending], Platelet Morphology [Pending] Height (Feet): 5 Height (Inches): 1.00 Weight (Pounds): 130 Cardiovascular: regular rhythm Respiratory/Chest: lungs clear Abdomen: soft Edwar Richardson MD Apr 04, 2019 11:13
--- NOTE | 2019-04-04 11:52 | NUR ---
NURSE NOTES: PT. notified dr. Mckoy and Dr. Alka Wilkins pt still itchy after medicated lotion was applied. Dr. Wilkins stated she will still be itchy due to the allergic reaction to the scabies bug so he ordered Benadryl 25mg q 4hrs PRN for itching.
--- NOTE | 2019-04-04 11:55 | NUR ---
NURSE NOTES: notified dr. Mckoy and doctor Trya about pt. latest labs.
--- NOTE | 2019-04-04 11:56 | Hematology/Onc Progress Note ---
Assessment/Plan Assessment/Plan Assessment and Recs: # Leukopenia -- multiple etiologies could be related to underlying liver disease , medication-induced, infection versus viral syndrome --> in this case likely due to UTI --> peripheral smear has been ordered and does not show significant abnormalities --> Medications have been reviewed --> Continue to monitor for improvement, trend cbc --> Hep panel and HIV both negative --> US abd ordered to r/o cirrhosis and hepatosplenomegaly - reviewed, negative --> reverse isolation if ANC is <2000 --> Give neupogen if ANC <1000 --> trend 4-->3.2-->3.8 # Thrombocytopenia - potential causes multifactorial, evaluate liver and viral etiologies to begin, also could be related to underlying medications patient has received. --> Hep panel and HIV, both negative --> US abd to evaluate for cirrhosis and hsm ordered - reviewed, negative --> Peripheral smear ordered to evaluate for blasts /schistocytes --> abx and other meds have been reviewed --> ok for ppx if plt >50k w/ either heparin or lovenox --> Transfuse if Plt < 20k and fever, or if Plt < 10k without fever --> plt trend 62-->53k-->54 --> per id # Altered level of consciousness --> likely due to uti --> s/p abx --> Dr. Suarez recs # UTI (urinary tract infection) # Slightly bradycardic. # Dvt ppx scds The timing of this note does not necessarily reflect the time of the patient was seen. Greatly appreciate consultation. Subjective Allergies: Coded Allergies: No Known Allergies (Unverified , 04/01/19) Subjective 04/04: no acute events, restraints, room air, labs reviewed Objective Objective Current Medications Medications (Trade) Dose Ordered Sig/Lorie Route PRN Reason Start Time Stop Time Status Last Admin Dose Admin Acetaminophen (Tylenol) 650 mg Q6H PRN ORAL Mild Pain/Temp > 100.5 04/01/19 20:50 05/01/19 20:49 Ceftriaxone Sodium 1 gm/ Dextrose 55 ml @ 110 mls/hr Q24H IVPB 04/02/19 14:00 04/09/19 13:59 04/03/19 14:20 Dextrose/ Electrolytes 1,000 ml @ 75 mls/hr [id number] IV 04/02/19 16:00 05/02/19 15:59 04/04/19 02:20 Lorazepam (Ativan) 1 mg Q6H PRN ORAL Agitation 04/01/19 21:00 04/08/19 20:59 04/02/19 08:50 Mirtazapine (Remeron) 15 mg BEDTIME ORAL 04/01/19 21:00 05/01/19 20:59 04/03/19 20:33 Olanzapine (ZyPREXA) 2.5 mg Q6H PRN ORAL agitation 04/02/19 11:00 05/02/19 10:59 04/02/19 13:10 Last 24 Hour Vital Signs Date Time Temp Pulse Resp B/P (MAP) Pulse Ox O2 Delivery O2 Flow Rate FiO2 04/04/19 08:49 Room Air 04/04/19 08:00 47 04/04/19 08:00 96.9 48 20 131/61 (84) 94 04/04/19 04:00 47 04/04/19 04:00 98.0 51 20 103/57 (72) 97 04/04/19 00:00 42 04/04/19 00:00 98.2 48 20 156/79 (104) 97 04/03/19 23:31 Room Air 04/03/19 20:00 72 04/03/19 20:00 97.9 69 20 140/70 (93) 96 04/03/19 16:00 97.3 73 19 136/61 (86) 95 04/03/19 12:00 49 04/03/19 12:00 97.0 54 18 135/61 (85) 97 04/03/19 08:30 97.8 67 20 127/84 (98) 97 04/03/19 08:25 Room Air 04/03/19 08:00 38 04/03/19 04:00 43 04/03/19 04:00 97.3 49 18 151/58 (89) 96 04/03/19 00:00 46 04/03/19 00:00 97.0 63 18 132/64 (86) 97 04/02/19 21:00 Room Air 04/02/19 20:00 61 04/02/19 20:00 97.5 66 20 129/63 (85) 99 04/02/19 16:00 97.3 78 18 139/74 (95) 94 04/02/19 16:00 59 04/02/19 12:00 57 04/02/19 12:00 98.4 68 18 113/61 (78) 98 Intake and Output 04/03/19 04/04/19 19:00 07:00 Intake Total 75 ml Balance 75 ml IV Total 75 ml # Voids 5 Labs Test 04/01/19 12:00 04/01/19 15:30 04/02/19 05:30 04/02/19 14:35 White Blood Count 4.0 K/UL (4.8-10.8) 3.2 K/UL (4.8-10.8) Red Blood Count 4.66 M/UL (4.20-5.40) 4.47 M/UL (4.20-5.40) Hemoglobin 14.3 G/DL (12.0-16.0) 13.7 G/DL (12.0-16.0) Hematocrit 42.5 % (37.0-47.0) 41.3 % (37.0-47.0) Mean Corpuscular Volume 91 FL (80-99) 92 FL (80-99) Mean Corpuscular Hemoglobin 30.8 PG (27.0-31.0) 30.7 PG (27.0-31.0) Mean Corpuscular Hemoglobin Concent 33.7 G/DL (32.0-36.0) 33.2 G/DL (32.0-36.0) Red Cell Distribution Width 13.7 % (11.6-14.8) 13.1 % (11.6-14.8) Platelet Count 63 K/UL (150-450) 59 K/UL (150-450) Mean Platelet Volume 13.1 FL (6.5-10.1) 14.9 FL (6.5-10.1) Neutrophils (%) (Auto) % (45.0-75.0) % (45.0-75.0) Lymphocytes (%) (Auto) % (20.0-45.0) % (20.0-45.0) Monocytes (%) (Auto) % (1.0-10.0) % (1.0-10.0) Eosinophils (%) (Auto) % (0.0-3.0) % (0.0-3.0) Basophils (%) (Auto) % (0.0-2.0) % (0.0-2.0) Differential Total Cells Counted 100 100 Neutrophils % (Manual) 71 % (45-75) 73 % (45-75) Lymphocytes % (Manual) 14 % (20-45) 22 % (20-45) Monocytes % (Manual) 10 % (1-10) 3 % (1-10) Eosinophils % (Manual) 5 % (0-3) 2 % (0-3) Basophils % (Manual) 0 % (0-2) 0 % (0-2) Band Neutrophils 0 % (0-8) 0 % (0-8) Platelet Estimate Decreased Decreased Platelet Morphology Normal Normal Red Blood Cell Morphology Normal Normal Urine Color Yellow Urine Appearance Slightly cloudy Urine pH 5 (4.5-8.0) Urine Specific [place] 1.030 (1.005-1.035) Urine Protein 2+ (NEGATIVE) Urine Glucose (UA) Negative (NEGATIVE) Urine Ketones 3+ (NEGATIVE) Urine Blood 4+ (NEGATIVE) Urine Nitrite Negative (NEGATIVE) Urine Bilirubin Negative (NEGATIVE) Urine Urobilinogen 1 MG/DL (0.0-1.0) Urine Leukocyte Esterase 3+ (NEGATIVE) Urine RBC 5-10 /HPF (0 - 2) Urine WBC 20-30 /HPF (0 - 2) Urine Squamous Epithelial Cells Few /LPF (NONE/OCC) Urine Bacteria Few /HPF (NONE) Urine Mucus Many /LPF (NONE/OCC) Sodium Level 146 MMOL/L (136-145) 146 MMOL/L (136-145) Potassium Level 3.7 MMOL/L (3.5-5.1) 3.1 MMOL/L (3.5-5.1) Chloride Level 105 MMOL/L (98-107) 106 MMOL/L (98-107) Carbon Dioxide Level 33 MMOL/L (21-32) 31 MMOL/L (21-32) Anion Gap 8 mmol/L (5-15) 9 mmol/L (5-15) Blood Urea Nitrogen 24 mg/dL (7-18) 20 mg/dL (7-18) Creatinine 1.1 MG/DL (0.55-1.30) 0.9 MG/DL (0.55-1.30) Estimat Glomerular Filtration Rate mL/min (>60) mL/min (>60) Glucose Level 130 MG/DL (74-106) 71 MG/DL (74-106) Calcium Level 8.6 MG/DL (8.5-10.1) 8.2 MG/DL (8.5-10.1) Phosphorus Level 3.1 MG/DL (2.5-4.9) Magnesium Level 2.3 MG/DL (1.8-2.4) Total Bilirubin 0.4 MG/DL (0.2-1.0) Aspartate Amino Transf (AST/SGOT) 43 U/L (15-37) Alanine Aminotransferase (ALT/SGPT) 30 U/L (12-78) Alkaline Phosphatase 46 U/L (46-116) Total Protein 7.5 G/DL (6.4-8.2) Albumin 3.3 G/DL (3.4-5.0) Globulin 4.2 g/dL Albumin/Globulin Ratio 0.8 (1.0-2.7) Lipase 136 U/L (73-393) Troponin I 0.000 ng/mL (0.000-0.056) Hepatitis A IgM Antibody Negative (Negative) Hepatitis B Surface Antigen Negative (Negative) Hepatitis B Core IgM Antibody Negative (Negative) Hepatitis C Antibody <0.1 s/co ratio HIV (1&2) Antibody Rapid Negative (NEGATIVE) Test 04/03/19 04:25 04/04/19 07:50 White Blood Count 3.8 K/UL (4.8-10.8) 3.8 K/UL (4.8-10.8) Red Blood Count 4.28 M/UL (4.20-5.40) 4.58 M/UL (4.20-5.40) Hemoglobin 13.3 G/DL (12.0-16.0) 14.2 G/DL (12.0-16.0) Hematocrit 39.4 % (37.0-47.0) 42.5 % (37.0-47.0) Mean Corpuscular Volume 92 FL (80-99) 93 FL (80-99) Mean Corpuscular Hemoglobin 31.1 PG (27.0-31.0) 31.1 PG (27.0-31.0) Mean Corpuscular Hemoglobin Concent 33.8 G/DL (32.0-36.0) 33.4 G/DL (32.0-36.0) Red Cell Distribution Width 12.9 % (11.6-14.8) 13.2 % (11.6-14.8) Platelet Count 51 K/UL (150-450) 54 K/UL (150-450) Mean Platelet Volume 12.2 FL (6.5-10.1) 14.7 FL (6.5-10.1) Neutrophils (%) (Auto) % (45.0-75.0) % (45.0-75.0) Lymphocytes (%) (Auto) % (20.0-45.0) % (20.0-45.0) Monocytes (%) (Auto) % (1.0-10.0) % (1.0-10.0) Eosinophils (%) (Auto) % (0.0-3.0) % (0.0-3.0) Basophils (%) (Auto) % (0.0-2.0) % (0.0-2.0) Differential Total Cells Counted 100 Neutrophils % (Manual) 67 % (45-75) Lymphocytes % (Manual) 23 % (20-45) Monocytes % (Manual) 8 % (1-10) Eosinophils % (Manual) 1 % (0-3) Basophils % (Manual) 1 % (0-2) Band Neutrophils 0 % (0-8) Platelet Estimate Decreased Platelet Morphology Normal Acanthocytes 1+ Sodium Level 141 MMOL/L (136-145) Potassium Level 3.7 MMOL/L (3.5-5.1) Chloride Level 107 MMOL/L (98-107) Carbon Dioxide Level 28 MMOL/L (21-32) Anion Gap 6 mmol/L (5-15) Blood Urea Nitrogen 11 mg/dL (7-18) Creatinine 0.8 MG/DL (0.55-1.30) Estimat Glomerular Filtration Rate mL/min (>60) Glucose Level 116 MG/DL (74-106) Hemoglobin A1c 6.7 % (4.3-6.0) Uric Acid 2.4 MG/DL (2.6-7.2) Calcium Level 7.5 MG/DL (8.5-10.1) Phosphorus Level 2.2 MG/DL (2.5-4.9) Magnesium Level 2.0 MG/DL (1.8-2.4) Total Bilirubin 0.4 MG/DL (0.2-1.0) Gamma Glutamyl Transpeptidase 15 U/L (5-85) Aspartate Amino Transf (AST/SGOT) 43 U/L (15-37) Alanine Aminotransferase (ALT/SGPT) 32 U/L (12-78) Alkaline Phosphatase 41 U/L (46-116) C-Reactive Protein, Quantitative < 0.4 mg/dL (0.00-0.90) Pro-B-Type Natriuretic Peptide 155 pg/mL (0-125) Total Protein 6.7 G/DL (6.4-8.2) Albumin 2.9 G/DL (3.4-5.0) Globulin 3.8 g/dL Albumin/Globulin Ratio 0.8 (1.0-2.7) Triglycerides Level 61 MG/DL (30-150) Cholesterol Level 165 MG/DL (< 200) LDL Cholesterol 52 mg/dL (<100) HDL Cholesterol 93 MG/DL (40-60) Cholesterol/HDL Ratio 1.8 (3.3-4.4) Vitamin B12 Level > 2000 PG/ML (193-986) Folate 23.0 NG/ML (8.6-58.9) Thyroid Stimulating Hormone (TSH) 126.520 uiU/mL (0.358-3.740) Height (Feet): 5 Height (Inches): 1.00 Weight (Pounds): 130 Objective PE: Vitals: reviewed General Appearance: NAD HEENT: normocephalic, atraumatic Neck: non-tender, normal alignment Respiratory/Chest: normal breath sounds bilaterally Cardiovascular/Chest: normal peripheral pulses, normal rate Abdomen: normal bowel sounds, soft, nontender. GT++ Extremities: normal range of motion +++ upper extremity contractures Albert Villegas MD Apr 04, 2019 11:56
--- NOTE | 2019-04-04 12:24 | Infectious Diseases Prog Note ---
Assessment/Plan Assessment/Plan A 1.Pyuria, ? UTI teated X 3 days 2. hypertension 3. ? scabies s/p rx 4. thrombocytopenia 5, dementia 6. bipolar disorder P 1. discontinue ceftriaxone 2. satrted on Diphenhydramine for itching Subjective ROS Limited/Unobtainable: Yes Constitutional: Reports: no symptoms Genitourinary: Reports: other - incontinent Neurologic: Reports: confusion, other - on restraint Skin: Reports: rash Allergies: Coded Allergies: No Known Allergies (Unverified , 04/01/19) Objective Vital Signs Last 24 Hour Vital Signs Date Time Temp Pulse Resp B/P (MAP) Pulse Ox O2 Delivery O2 Flow Rate FiO2 04/04/19 08:49 Room Air 04/04/19 08:00 47 04/04/19 08:00 96.9 48 20 131/61 (84) 94 04/04/19 04:00 47 04/04/19 04:00 98.0 51 20 103/57 (72) 97 04/04/19 00:00 42 04/04/19 00:00 98.2 48 20 156/79 (104) 97 04/03/19 23:31 Room Air 04/03/19 20:00 72 04/03/19 20:00 97.9 69 20 140/70 (93) 96 04/03/19 16:00 97.3 73 19 136/61 (86) 95 Height (Feet): 5 Height (Inches): 1.00 Weight (Pounds): 130 General Appearance: no acute distress HEENT: mucous membranes moist Respiratory/Chest: lungs clear Cardiovascular: normal rate Abdomen: soft, non tender Extremities: no edema Neurologic/Psychiatric: alert, responsive Laboratory Tests Test 04/04/19 07:50 White Blood Count 3.8 K/UL (4.8-10.8) L Red Blood Count 4.58 M/UL (4.20-5.40) Hemoglobin 14.2 G/DL (12.0-16.0) Hematocrit 42.5 % (37.0-47.0) Mean Corpuscular Volume 93 FL (80-99) Mean Corpuscular Hemoglobin 31.1 PG (27.0-31.0) H Mean Corpuscular Hemoglobin Concent 33.4 G/DL (32.0-36.0) Red Cell Distribution Width 13.2 % (11.6-14.8) Platelet Count 54 K/UL (150-450) L Mean Platelet Volume 14.7 FL (6.5-10.1) H Neutrophils (%) (Auto) % (45.0-75.0) Lymphocytes (%) (Auto) % (20.0-45.0) Monocytes (%) (Auto) % (1.0-10.0) Eosinophils (%) (Auto) % (0.0-3.0) Basophils (%) (Auto) % (0.0-2.0) Differential Total Cells Counted 100 Neutrophils % (Manual) 57 % (45-75) Lymphocytes % (Manual) 28 % (20-45) Monocytes % (Manual) 10 % (1-10) Eosinophils % (Manual) 5 % (0-3) H Basophils % (Manual) 0 % (0-2) Band Neutrophils 0 % (0-8) Platelet Estimate Decreased L Platelet Morphology Normal Red Blood Cell Morphology Normal Current Medications Medications (Trade) Dose Ordered Sig/Lorie Route PRN Reason Start Time Stop Time Status Last Admin Dose Admin Acetaminophen (Tylenol) 650 mg Q6H PRN ORAL Mild Pain/Temp > 100.5 04/01/19 20:50 05/01/19 20:49 Ceftriaxone Sodium 1 gm/ Dextrose 55 ml @ 110 mls/hr Q24H IVPB 04/02/19 14:00 04/09/19 13:59 04/03/19 14:20 Dextrose/ Electrolytes 1,000 ml @ 75 mls/hr [id number] IV 04/02/19 16:00 05/02/19 15:59 04/04/19 02:20 Diphenhydramine HCl (Benadryl) 25 mg Q4H PRN ORAL ITCHING 04/04/19 11:45 05/04/19 11:44 04/04/19 12:07 Lorazepam (Ativan) 1 mg Q6H PRN ORAL Agitation 04/01/19 21:00 04/08/19 20:59 04/02/19 08:50 Mirtazapine (Remeron) 15 mg BEDTIME ORAL 04/01/19 21:00 05/01/19 20:59 04/03/19 20:33 Olanzapine (ZyPREXA) 2.5 mg Q6H PRN ORAL agitation 04/02/19 11:00 05/02/19 10:59 04/02/19 13:10 Naveen Walker MD Apr 04, 2019 12:24
--- NOTE | 2019-04-04 14:11 | Nephrology Progress Note ---
Assessment/Plan Problem List: (1) UTI (urinary tract infection) (2) Hypothyroid Assessment: TSH over 120 (3) Electrolyte imbalance (4) Dehydration (5) Encephalopathy Assessment Electrolyte imbalance Encephalopathy UTI Dehydration Plan hydrate K supplement Antibiotics Per orders Subjective ROS Limited/Unobtainable: No Constitutional: Reports: malaise Objective Objective Last 24 Hour Vital Signs Date Time Temp Pulse Resp B/P (MAP) Pulse Ox O2 Delivery O2 Flow Rate FiO2 04/04/19 08:49 Room Air 04/04/19 08:00 47 04/04/19 08:00 96.9 48 20 131/61 (84) 94 04/04/19 04:00 47 04/04/19 04:00 98.0 51 20 103/57 (72) 97 04/04/19 00:00 42 04/04/19 00:00 98.2 48 20 156/79 (104) 97 04/03/19 23:31 Room Air 04/03/19 20:00 72 04/03/19 20:00 97.9 69 20 140/70 (93) 96 04/03/19 16:00 97.3 73 19 136/61 (86) 95 Intake and Output 04/03/19 04/04/19 19:00 07:00 Intake Total 75 ml Balance 75 ml IV Total 75 ml # Voids 5 Laboratory Tests 04/04/19 07:50: White Blood Count 3.8L, Red Blood Count 4.58, Hemoglobin 14.2, Hematocrit 42.5, Mean Corpuscular Volume 93, Mean Corpuscular Hemoglobin 31.1H, Mean Corpuscular Hemoglobin Concent 33.4, Red Cell Distribution Width 13.2, Platelet Count 54L, Mean Platelet Volume 14.7H, Neutrophils (%) (Auto) , Lymphocytes (%) (Auto) , Monocytes (%) (Auto) , Eosinophils (%) (Auto) , Basophils (%) (Auto) , Differential Total Cells Counted 100, Neutrophils % (Manual) 57, Lymphocytes % ( Manual) 28, Monocytes % (Manual) 10, Eosinophils % (Manual) 5H, Basophils % ( Manual) 0, Band Neutrophils 0, Platelet Estimate DecreasedL, Platelet Morphology Normal, Red Blood Cell Morphology Normal Height (Feet): 5 Height (Inches): 1.00 Weight (Pounds): 130 General Appearance: no apparent distress Cardiovascular: bradycardia Respiratory/Chest: lungs clear Fouladian,Roe MD Apr 04, 2019 14:11
--- NOTE | 2019-04-04 16:30 | NUR ---
NURSE NOTES: Pt family was keeping pt company L restrain was loosen up while family present. Family was told to let us know when she was going home to put restrain back. Family member went home without out letting us know and pt pulled out IV. pt is able to to take off restrains and gets out of bed.
--- NOTE | 2019-04-04 19:04 | NUR ---
HAND-OFF: Report given to Bacos/RN, new IV inserted 22 L F/A.
--- NOTE | 2019-04-04 19:19 | NUR ---
NURSE NOTES: Received report from GIA Knight, patient in stable condition, AOx1, denies pain at this time, able to make needs known to a degree, on bilateral soft restraints, IV site on left forearm arm g22, asymptomatic, intact, bed low&locked, side rails upx3, call light within reach, will continue to monitor and reassess.
[2019-04-05] VITALS: BP 114/62
[2019-04-05] MEDS: LORazepam 1mg tab ORAL PRN ×2 (02:14→13:26)
[2019-04-05 04:00] VITALS: BP 145/68
--- NOTE | 2019-04-05 07:30 | NUR ---
NURSE NOTES: Received pt from GIA SUMNER. Pt is confused x1. pt is in RA, No SOB or acute respiratory distress note. pt has intact iv access L U arm is running well. all needs attended, bed is locked and is in the lowest position. call light within easy reach. will continue to monitor.
[2019-04-05 07:49] LABS: HEMATOCRIT 42.1 % (37.0-47.0); HEMOGLOBIN 14.1 G/DL (12.0-16.0); MEAN CORPUSCULAR VOLUME 91 FL (80-99); PLATELET COUNT 51 K/UL (150-450); RED BLOOD COUNT 4.63 M/UL (4.20-5.40); RED CELL DISTRIBUTION WIDTH 11.7 % (11.6-14.8); WHITE BLOOD COUNT 6.7 K/UL (4.8-10.8)
--- NOTE | 2019-04-05 07:57 | Hematology/Onc Progress Note ---
Assessment/Plan Assessment/Plan Assessment and Recs: # Leukopenia -- multiple etiologies could be related to underlying liver disease , medication-induced, infection versus viral syndrome --> in this case likely due to UTI --> peripheral smear has been ordered and does not show significant abnormalities --> Medications have been reviewed --> Continue to monitor for improvement, trend cbc --> Hep panel and HIV both negative --> US abd ordered to r/o cirrhosis and hepatosplenomegaly - reviewed, negative --> reverse isolation if ANC is <2000 --> Give neupogen if ANC <1000 --> trend 4-->3.2-->3.8 # Thrombocytopenia - potential causes multifactorial, evaluate liver and viral etiologies to begin, also could be related to underlying medications patient has received. --> Hep panel and HIV, both negative --> US abd to evaluate for cirrhosis and hsm ordered - reviewed, negative --> Peripheral smear ordered to evaluate for blasts /schistocytes --> abx and other meds have been reviewed --> ok for ppx if plt >50k w/ either heparin or lovenox --> Transfuse if Plt < 20k and fever, or if Plt < 10k without fever --> plt trend 62-->53k-->54 --> per id # Altered level of consciousness --> likely due to uti --> s/p abx --> Dr. Suarez recs # UTI (urinary tract infection) --> s/p abx # Slightly bradycardic --> per cards # Dvt ppx scds The timing of this note does not necessarily reflect the time of the patient was seen. Greatly appreciate consultation. Subjective Constitutional: Denies: no symptoms, chills, fever, malaise, weakness, other HEENT: Denies: no symptoms, eye pain, blurred vision, tearing, double vision, ear pain, ear discharge, nose pain, nose congestion, throat pain, throat swelling, mouth pain, mouth swelling, other Respiratory: Denies: no symptoms, cough, shortness of breath, SOB with excertion, SOB at rest, sputum, wheezing, other Gastrointestinal/Abdominal: Denies: no symptoms, abdomen distended, abdominal pain, black stools, tarry stools, blood in stool, constipated, diarrhea, difficulty swallowing, nausea, poor appetite, poor fluid intake, rectal bleeding , vomiting, other Genitourinary: Denies: no symptoms, burning, discharge, frequency, flank pain, hematuria, incontinence, pain, urgency, other Neurologic/Psychiatric: Denies: no symptoms, anxiety, depressed, emotional problems, headache, numbness, paresthesia, pre-existing deficit, seizure, tingling, tremors, weakness, other Hematologic/Lymphatic: Denies: no symptoms, anemia, easy bleeding, easy bruising, adenopathy, other Allergies: Coded Allergies: No Known Allergies (Unverified , 04/01/19) Subjective 04/04: no acute events, restraints, room air, labs reviewed 04/05: no bleeding, remains confused with soft restraints, no major changes Objective Objective Current Medications Medications (Trade) Dose Ordered Sig/Lorie Route PRN Reason Start Time Stop Time Status Last Admin Dose Admin Acetaminophen (Tylenol) 650 mg Q6H PRN ORAL Mild Pain/Temp > 100.5 04/01/19 20:50 05/01/19 20:49 Dextrose/ Electrolytes 1,000 ml @ 50 mls/hr Q20H IV 04/04/19 14:15 05/02/19 14:14 04/04/19 14:33 Diphenhydramine HCl (Benadryl) 25 mg Q4H PRN ORAL ITCHING 04/04/19 11:45 05/04/19 11:44 04/05/19 02:14 Levothyroxine Sodium (Synthroid) 100 mcg DAILY@0630 ORAL 04/05/19 06:30 05/05/19 06:29 04/05/19 06:50 Lorazepam (Ativan) 1 mg Q6H PRN ORAL Agitation 04/01/19 21:00 04/08/19 20:59 04/05/19 02:14 Mirtazapine (Remeron) 15 mg BEDTIME ORAL 04/01/19 21:00 05/01/19 20:59 04/04/19 20:52 Olanzapine (ZyPREXA) 2.5 mg Q6H PRN ORAL agitation 04/02/19 11:00 05/02/19 10:59 04/02/19 13:10 Last 24 Hour Vital Signs Date Time Temp Pulse Resp B/P (MAP) Pulse Ox O2 Delivery O2 Flow Rate FiO2 04/05/19 04:00 97.5 52 19 145/68 (93) 95 04/05/19 04:00 56 04/05/19 00:00 49 04/05/19 00:00 97.5 60 16 114/62 (79) 95 04/04/19 22:00 97.5 50 16 128/57 (80) 95 04/04/19 21:00 Room Air 04/04/19 20:00 50 04/04/19 20:00 97.5 50 16 128/57 (80) 95 04/04/19 16:00 57 04/04/19 16:00 97.0 60 20 119/71 (87) 94 04/04/19 12:02 96.8 55 18 98/44 (62) 95 04/04/19 12:00 55 04/04/19 08:49 Room Air 04/04/19 08:00 47 04/04/19 08:00 96.9 48 20 131/61 (84) 94 04/04/19 04:00 47 04/04/19 04:00 98.0 51 20 103/57 (72) 97 04/04/19 00:00 42 04/04/19 00:00 98.2 48 20 156/79 (104) 97 04/03/19 23:31 Room Air 04/03/19 20:00 72 04/03/19 20:00 97.9 69 20 140/70 (93) 96 04/03/19 16:00 97.3 73 19 136/61 (86) 95 04/03/19 12:00 49 04/03/19 12:00 97.0 54 18 135/61 (85) 97 04/03/19 08:30 97.8 67 20 127/84 (98) 97 04/03/19 08:25 Room Air 04/03/19 08:00 38 Intake and Output 04/04/19 04/05/19 19:00 07:00 Intake Total 360 ml 200 ml Balance 360 ml 200 ml Intake Oral 360 ml 200 ml # Voids 3 2 Labs Test 04/02/19 14:35 04/03/19 04:25 04/04/19 07:50 04/05/19 06:13 White Blood Count 3.8 K/UL (4.8-10.8) 3.8 K/UL (4.8-10.8) Red Blood Count 4.28 M/UL (4.20-5.40) 4.58 M/UL (4.20-5.40) Hemoglobin 13.3 G/DL (12.0-16.0) 14.2 G/DL (12.0-16.0) Hematocrit 39.4 % (37.0-47.0) 42.5 % (37.0-47.0) Mean Corpuscular Volume 92 FL (80-99) 93 FL (80-99) Mean Corpuscular Hemoglobin 31.1 PG (27.0-31.0) 31.1 PG (27.0-31.0) Mean Corpuscular Hemoglobin Concent 33.8 G/DL (32.0-36.0) 33.4 G/DL (32.0-36.0) Red Cell Distribution Width 12.9 % (11.6-14.8) 13.2 % (11.6-14.8) Platelet Count 51 K/UL (150-450) 54 K/UL (150-450) Mean Platelet Volume 12.2 FL (6.5-10.1) 14.7 FL (6.5-10.1) Neutrophils (%) (Auto) % (45.0-75.0) % (45.0-75.0) Lymphocytes (%) (Auto) % (20.0-45.0) % (20.0-45.0) Monocytes (%) (Auto) % (1.0-10.0) % (1.0-10.0) Eosinophils (%) (Auto) % (0.0-3.0) % (0.0-3.0) Basophils (%) (Auto) % (0.0-2.0) % (0.0-2.0) Differential Total Cells Counted 100 100 Neutrophils % (Manual) 67 % (45-75) 57 % (45-75) Lymphocytes % (Manual) 23 % (20-45) 28 % (20-45) Monocytes % (Manual) 8 % (1-10) 10 % (1-10) Eosinophils % (Manual) 1 % (0-3) 5 % (0-3) Basophils % (Manual) 1 % (0-2) 0 % (0-2) Band Neutrophils 0 % (0-8) 0 % (0-8) Platelet Estimate Decreased Decreased Platelet Morphology Normal Normal Acanthocytes 1+ Sodium Level 141 MMOL/L (136-145) Potassium Level 3.7 MMOL/L (3.5-5.1) Chloride Level 107 MMOL/L (98-107) Carbon Dioxide Level 28 MMOL/L (21-32) Anion Gap 6 mmol/L (5-15) Blood Urea Nitrogen 11 mg/dL (7-18) Creatinine 0.8 MG/DL (0.55-1.30) Estimat Glomerular Filtration Rate mL/min (>60) Glucose Level 116 MG/DL (74-106) Hemoglobin A1c 6.7 % (4.3-6.0) Uric Acid 2.4 MG/DL (2.6-7.2) Calcium Level 7.5 MG/DL (8.5-10.1) Phosphorus Level 2.2 MG/DL (2.5-4.9) Magnesium Level 2.0 MG/DL (1.8-2.4) Total Bilirubin 0.4 MG/DL (0.2-1.0) Gamma Glutamyl Transpeptidase 15 U/L (5-85) Aspartate Amino Transf (AST/SGOT) 43 U/L (15-37) Alanine Aminotransferase (ALT/SGPT) 32 U/L (12-78) Alkaline Phosphatase 41 U/L (46-116) C-Reactive Protein, Quantitative < 0.4 mg/dL (0.00-0.90) Pro-B-Type Natriuretic Peptide 155 pg/mL (0-125) Total Protein 6.7 G/DL (6.4-8.2) Albumin 2.9 G/DL (3.4-5.0) Globulin 3.8 g/dL Albumin/Globulin Ratio 0.8 (1.0-2.7) Triglycerides Level 61 MG/DL (30-150) Cholesterol Level 165 MG/DL (< 200) LDL Cholesterol 52 mg/dL (<100) HDL Cholesterol 93 MG/DL (40-60) Cholesterol/HDL Ratio 1.8 (3.3-4.4) Vitamin B12 Level > 2000 PG/ML (193-986) Folate 23.0 NG/ML (8.6-58.9) Thyroid Stimulating Hormone (TSH) 126.520 uiU/mL (0.358-3.740) Red Blood Cell Morphology Normal Height (Feet): 5 Height (Inches): 1.00 Weight (Pounds): 130 Objective PE: Vitals: reviewed General Appearance: NAD HEENT: normocephalic, atraumatic Neck: non-tender, normal alignment Respiratory/Chest: normal breath sounds bilaterally Cardiovascular/Chest: normal peripheral pulses, normal rate Abdomen: normal bowel sounds, soft, nontender. GT++ Extremities: normal range of motion +++ upper extremity contractures Albert Villegas MD Apr 05, 2019 07:57
[2019-04-05 08:00] VITALS: BP 119/69
--- NOTE | 2019-04-05 08:10 | NUR ---
HAND-OFF: Report given to Frank RN, patient in stable condition, plan of care endorsed.
[2019-04-05 08:21] LABS: ALANINE AMINOTRANSFERASE 53 U/L (12-78); ALBUMIN 3.1 G/DL (3.4-5.0); ALBUMIN/GLOBULIN RATIO 0.8 (1.0-2.7); ALKALINE PHOSPHATASE 45 U/L (46-116); ANION GAP 8 mmol/L (5-15); ASPARTATE AMINO TRANSFERASE 72 U/L (15-37); BILIRUBIN,TOTAL 0.5 MG/DL (0.2-1.0); BLOOD UREA NITROGEN 4 mg/dL (7-18); CALCIUM 8.2 MG/DL (8.5-10.1); CARBON DIOXIDE 28 MMOL/L (21-32); CHLORIDE 108 MMOL/L (98-107); CREATININE 0.9 MG/DL (0.55-1.30); POTASSIUM 3.4 MMOL/L (3.5-5.1); SODIUM 144 MMOL/L (136-145)
[2019-04-05 08:24] LABS: PHOSPHORUS 2.9 MG/DL (2.5-4.9)
[2019-04-05] MEDS: D5 1/2NS w/KCl 20mEq 1,000 ML IV SCH (10:02)
--- NOTE | 2019-04-05 10:44 | Nephrology Progress Note ---
Assessment/Plan Problem List: (1) UTI (urinary tract infection) (2) Hypothyroid Assessment: TSH over 120 (3) Electrolyte imbalance (4) Dehydration (5) Encephalopathy Assessment Electrolyte imbalance Encephalopathy UTI Dehydration Plan repeat UA and c/s stop hydrate K supplement IV synthroid Per orders Subjective ROS Limited/Unobtainable: No Constitutional: Reports: malaise Objective Objective Last 24 Hour Vital Signs Date Time Temp Pulse Resp B/P (MAP) Pulse Ox O2 Delivery O2 Flow Rate FiO2 04/05/19 04:00 97.5 52 19 145/68 (93) 95 04/05/19 04:00 56 04/05/19 00:00 49 04/05/19 00:00 97.5 60 16 114/62 (79) 95 04/04/19 22:00 97.5 50 16 128/57 (80) 95 04/04/19 21:00 Room Air 04/04/19 20:00 50 04/04/19 20:00 97.5 50 16 128/57 (80) 95 04/04/19 16:00 57 04/04/19 16:00 97.0 60 20 119/71 (87) 94 04/04/19 12:02 96.8 55 18 98/44 (62) 95 04/04/19 12:00 55 Intake and Output 04/04/19 04/05/19 19:00 07:00 Intake Total 360 ml 200 ml Balance 360 ml 200 ml Intake Oral 360 ml 200 ml # Voids 3 2 Laboratory Tests 04/05/19 06:13: White Blood Count 6.7#, Red Blood Count 4.63, Hemoglobin 14.1, Hematocrit 42.1, Mean Corpuscular Volume 91, Mean Corpuscular Hemoglobin 30.5, Mean Corpuscular Hemoglobin Concent 33.6, Red Cell Distribution Width 11.7, Platelet Count 51L, Mean Platelet Volume 13.1H, Neutrophils (%) (Auto) , Lymphocytes (%) (Auto) , Monocytes (%) (Auto) , Eosinophils (%) (Auto) , Basophils (%) (Auto) , Neutrophils % (Manual) [Pending], Lymphocytes % (Manual) [Pending], Platelet Estimate [Pending], Platelet Morphology [Pending], Sodium Level 144, Potassium Level 3.4L, Chloride Level 108H, Carbon Dioxide Level 28, Anion Gap 8, Blood Urea Nitrogen 4L, Creatinine 0.9, Estimat Glomerular Filtration Rate , Glucose Level 98, Uric Acid 2.4L, Calcium Level 8.2L, Phosphorus Level 2.9, Magnesium Level 2.0, Total Bilirubin 0.5, Aspartate Amino Transf (AST/SGOT) 72H, Alanine Aminotransferase (ALT/SGPT) 53, Alkaline Phosphatase 45L, C-Reactive Protein, Quantitative < 0.4, Pro-B-Type Natriuretic Peptide 177H, Total Protein 7.0, Albumin 3.1L, Globulin 3.9, Albumin/Globulin Ratio 0.8L, Thyroid Stimulating Hormone (TSH) 119.241H Height (Feet): 5 Height (Inches): 1.00 Weight (Pounds): 130 General Appearance: no apparent distress Objective no change Roe Avelar MD Apr 05, 2019 10:44
[2019-04-05 12:00] VITALS: BP 135/76
--- NOTE | 2019-04-05 12:45 | Consultation ---
DATE OF CONSULTATION: 04/04/2019 NOTE: POOR AUDIO. ENDOCRINOLOGY CONSULTATION CONSULTING PHYSICIAN: Tano England M.D. REFERRING PHYSICIAN: Edwar Richardson M.D. REASON FOR CONSULTATION: I was asked to see this 83-year-old female by Dr. Edwar Richardson in Endocrinology consultation and management thrombocytopenia concerns and problems. She is doing . FAMILY HISTORY: Unremarkable. PERSONAL HISTORY: Negative for tobacco abuse. REVIEW OF SYSTEMS: A 14-point review is unremarkable. PHYSICAL EXAMINATION: GENERAL: The patient is in no acute distress. VITAL SIGNS: Blood pressure is 120/57, pulse 61, respiratory rate temperature 97.5, and weight 40 kg. HEAD AND NECK: Unremarkable. LUNGS: Clear. HEART: Heart sounds regular. ABDOMEN: Soft. Bowel sounds present. EXTREMITIES: No edema. NEUROLOGICAL: Cranial nerves II through XII are grossly intact with toes downgoing to plantar stimulation. hypothyroidism thrombocytopenia . The patient with diabetes from 50 to 100 mcg daily. two weeks Hematology retail sales vitamin consultant. Tano England M.D. DR: BAKARI JOB#: [id number] CC:
--- NOTE | 2019-04-05 13:59 | Infectious Diseases Prog Note ---
Assessment/Plan Assessment/Plan A 1.Pyuria, ? UTI teated X 3 days 2. hypertension 3. ? scabies s/p rx 4. thrombocytopenia 5, dementia 6. bipolar disorder 7. Bradycardia 8. Hypothyroidism P 1. continue Diphenhydramine for itching Subjective ROS Limited/Unobtainable: Yes Neurologic: Reports: confusion, other Skin: Reports: other - itching Allergies: Coded Allergies: No Known Allergies (Unverified , 04/01/19) Objective Vital Signs Last 24 Hour Vital Signs Date Time Temp Pulse Resp B/P (MAP) Pulse Ox O2 Delivery O2 Flow Rate FiO2 04/05/19 12:00 97.6 55 18 135/76 (95) 98 04/05/19 11:53 53 04/05/19 09:00 Room Air 04/05/19 08:04 46 04/05/19 08:00 97.2 54 18 119/69 (86) 98 04/05/19 04:00 97.5 52 19 145/68 (93) 95 04/05/19 04:00 56 04/05/19 00:00 49 04/05/19 00:00 97.5 60 16 114/62 (79) 95 04/04/19 22:00 97.5 50 16 128/57 (80) 95 04/04/19 21:00 Room Air 04/04/19 20:00 50 04/04/19 20:00 97.5 50 16 128/57 (80) 95 04/04/19 16:00 57 04/04/19 16:00 97.0 60 20 119/71 (87) 94 Height (Feet): 5 Height (Inches): 1.00 Weight (Pounds): 130 General Appearance: no acute distress HEENT: mucous membranes moist Respiratory/Chest: lungs clear Cardiovascular: bradycardia Abdomen: soft, non tender Extremities: no edema Skin: rash, other - excorieted papules Neurologic/Psychiatric: alert, responsive Laboratory Tests Test 04/05/19 06:13 White Blood Count 6.7 K/UL (4.8-10.8) # Red Blood Count 4.63 M/UL (4.20-5.40) Hemoglobin 14.1 G/DL (12.0-16.0) Hematocrit 42.1 % (37.0-47.0) Mean Corpuscular Volume 91 FL (80-99) Mean Corpuscular Hemoglobin 30.5 PG (27.0-31.0) Mean Corpuscular Hemoglobin Concent 33.6 G/DL (32.0-36.0) Red Cell Distribution Width 11.7 % (11.6-14.8) Platelet Count 51 K/UL (150-450) L Mean Platelet Volume 13.1 FL (6.5-10.1) H Neutrophils (%) (Auto) % (45.0-75.0) Lymphocytes (%) (Auto) % (20.0-45.0) Monocytes (%) (Auto) % (1.0-10.0) Eosinophils (%) (Auto) % (0.0-3.0) Basophils (%) (Auto) % (0.0-2.0) Differential Total Cells Counted 100 Neutrophils % (Manual) 80 % (45-75) H Lymphocytes % (Manual) 10 % (20-45) L Monocytes % (Manual) 9 % (1-10) Eosinophils % (Manual) 1 % (0-3) Basophils % (Manual) 0 % (0-2) Band Neutrophils 0 % (0-8) Platelet Estimate Decreased L Platelet Morphology Normal Sodium Level 144 MMOL/L (136-145) Potassium Level 3.4 MMOL/L (3.5-5.1) L Chloride Level 108 MMOL/L (98-107) H Carbon Dioxide Level 28 MMOL/L (21-32) Anion Gap 8 mmol/L (5-15) Blood Urea Nitrogen 4 mg/dL (7-18) L Creatinine 0.9 MG/DL (0.55-1.30) Estimat Glomerular Filtration Rate mL/min (>60) Glucose Level 98 MG/DL (74-106) Uric Acid 2.4 MG/DL (2.6-7.2) L Calcium Level 8.2 MG/DL (8.5-10.1) L Phosphorus Level 2.9 MG/DL (2.5-4.9) Magnesium Level 2.0 MG/DL (1.8-2.4) Total Bilirubin 0.5 MG/DL (0.2-1.0) Aspartate Amino Transf (AST/SGOT) 72 U/L (15-37) H Alanine Aminotransferase (ALT/SGPT) 53 U/L (12-78) Alkaline Phosphatase 45 U/L (46-116) L C-Reactive Protein, Quantitative < 0.4 mg/dL (0.00-0.90) Pro-B-Type Natriuretic Peptide 177 pg/mL (0-125) H Total Protein 7.0 G/DL (6.4-8.2) Albumin 3.1 G/DL (3.4-5.0) L Globulin 3.9 g/dL Albumin/Globulin Ratio 0.8 (1.0-2.7) L Thyroid Stimulating Hormone (TSH) 119.241 uiU/mL (0.358-3.740) Free Thyroxine 0.29 NG/DL (0.76-1.46) L Free Triiodothyronine 0.6 pg/mL (2.3-4.2) L Current Medications Medications (Trade) Dose Ordered Sig/Lorie Route PRN Reason Start Time Stop Time Status Last Admin Dose Admin Acetaminophen (Tylenol) 650 mg Q6H PRN ORAL Mild Pain/Temp > 100.5 04/01/19 20:50 05/01/19 20:49 Diphenhydramine HCl (Benadryl) 25 mg Q4H PRN ORAL ITCHING 04/04/19 11:45 05/04/19 11:44 04/05/19 13:26 Levothyroxine Sodium (Synthroid) 50 mcg DAILY IV 04/06/19 09:00 05/06/19 08:59 Lorazepam (Ativan) 1 mg Q6H PRN ORAL Agitation 04/01/19 21:00 04/08/19 20:59 04/05/19 13:26 Mirtazapine (Remeron) 15 mg BEDTIME ORAL 04/01/19 21:00 05/01/19 20:59 04/04/19 20:52 Olanzapine (ZyPREXA) 2.5 mg Q6H PRN ORAL agitation 04/02/19 11:00 05/02/19 10:59 04/02/19 13:10 Potassium Chloride (K-Dur) 40 meq DAILY ORAL 04/05/19 09:00 05/05/19 08:59 04/05/19 10:00 Naveen Walker MD Apr 05, 2019 13:59
[2019-04-05 16:00] VITALS: BP 140/59
[2019-04-05] MEDS: OLANZapine 2.5mg tab ORAL SCH (17:20)
[2019-04-05 18:04] LABS: APPEARANCE,URINE SLIGHTLY CLOUDY; BILIRUBIN, URINE NEGATIVE (NEGATIVE); COLOR,URINE PALE YELLOW; GLUCOSE, URINE (UA) NEGATIVE (NEGATIVE); KETONES,URINE NEGATIVE (NEGATIVE); LEUKOCYTE ESTERASE ,URINE 3+ (NEGATIVE); NITRITE,URINE NEGATIVE (NEGATIVE); PH,URINE 7 (4.5-8.0); PROTEIN,URINE NEGATIVE (NEGATIVE); UROBILINOGEN,URINE NORMAL MG/DL (0.0-1.0)
--- NOTE | 2019-04-05 19:33 | NUR ---
HAND-OFF: Report given to MYLES RN. Pt is awake and stable.
--- NOTE | 2019-04-05 19:35 | NUR ---
NURSE NOTES: Pt received from GIA Marie alert and oriented x1, Serbian speaking only with no acute s/s of distress noted. IV site asymptomatic and patent, L fa 20g saline lock. Bed in lowest position, call light and belongings within reach.
[2019-04-05 20:00] VITALS: BP 109/59
--- NOTE | 2019-04-05 20:44 | General Progress Note ---
Assessment/Plan Problem List: (1) Altered level of consciousness ICD Codes: R40.4 - Transient alteration of awareness SNOMED: 7318902 (2) Confused ICD Codes: R41.0 - Disorientation, unspecified SNOMED: 692877089 (3) Agitation ICD Codes: R45.1 - Restlessness and agitation SNOMED: 888751188 (4) UTI (urinary tract infection) ICD Codes: N39.0 - Urinary tract infection, site not specified SNOMED: 80166690 Status: progressing Assessment/Plan: itching ordered cream and informed id low platlet uti severly elevated tsh on iv synthroid not stable for dc treatment for scabies Subjective ROS Limited/Unobtainable: Yes Allergies: Coded Allergies: No Known Allergies (Unverified , 04/01/19) Subjective itching Objective Last 24 Hour Vital Signs Date Time Temp Pulse Resp B/P (MAP) Pulse Ox O2 Delivery O2 Flow Rate FiO2 04/05/19 20:00 81 04/05/19 16:00 97.1 72 18 140/59 (86) 95 04/05/19 15:20 83 04/05/19 12:00 97.6 55 18 135/76 (95) 98 04/05/19 11:53 53 04/05/19 09:00 Room Air 04/05/19 08:04 46 04/05/19 08:00 97.2 54 18 119/69 (86) 98 04/05/19 04:00 97.5 52 19 145/68 (93) 95 04/05/19 04:00 56 04/05/19 00:00 49 04/05/19 00:00 97.5 60 16 114/62 (79) 95 04/04/19 22:00 97.5 50 16 128/57 (80) 95 04/04/19 21:00 Room Air Intake and Output 04/04/19 04/05/19 19:00 07:00 Intake Total 360 ml 200 ml Balance 360 ml 200 ml Intake Oral 360 ml 200 ml # Voids 3 2 Laboratory Tests 04/05/19 06:13: White Blood Count 6.7#, Red Blood Count 4.63, Hemoglobin 14.1, Hematocrit 42.1, Mean Corpuscular Volume 91, Mean Corpuscular Hemoglobin 30.5, Mean Corpuscular Hemoglobin Concent 33.6, Red Cell Distribution Width 11.7, Platelet Count 51L, Mean Platelet Volume 13.1H, Neutrophils (%) (Auto) , Lymphocytes (%) (Auto) , Monocytes (%) (Auto) , Eosinophils (%) (Auto) , Basophils (%) (Auto) , Differential Total Cells Counted 100, Neutrophils % (Manual) 80H, Lymphocytes % (Manual) 10L, Monocytes % (Manual) 9, Eosinophils % (Manual) 1, Basophils % ( Manual) 0, Band Neutrophils 0, Platelet Estimate DecreasedL, Platelet Morphology Normal, Sodium Level 144, Potassium Level 3.4L, Chloride Level 108H, Carbon Dioxide Level 28, Anion Gap 8, Blood Urea Nitrogen 4L, Creatinine 0.9, Estimat Glomerular Filtration Rate , Glucose Level 98, Uric Acid 2.4L, Calcium Level 8.2L, Phosphorus Level 2.9, Magnesium Level 2.0, Total Bilirubin 0.5, Aspartate Amino Transf (AST/SGOT) 72H, Alanine Aminotransferase (ALT/SGPT) 53, Alkaline Phosphatase 45L, C-Reactive Protein, Quantitative < 0.4, Pro-B-Type Natriuretic Peptide 177H, Total Protein 7.0, Albumin 3.1L, Globulin 3.9, Albumin /Globulin Ratio 0.8L, Thyroid Stimulating Hormone (TSH) 119.241H, Free Thyroxine 0.29L, Free Triiodothyronine 0.6L 04/05/19 17:35: Urine Color Pale yellow, Urine Appearance Slightly cloudy, Urine pH 7, Urine Specific [place] 1.010, Urine Protein Negative, Urine Glucose (UA) Negative, Urine Ketones Negative, Urine Blood 1+H, Urine Nitrite Negative, Urine Bilirubin Negative, Urine Urobilinogen Normal, Urine Leukocyte Esterase 3+H, Urine RBC 2-4H, Urine WBC 15-20H, Urine Squamous Epithelial Cells Few, Urine Bacteria ModerateH Height (Feet): 5 Height (Inches): 1.00 Weight (Pounds): 130 Cardiovascular: regular rhythm Respiratory/Chest: lungs clear Abdomen: soft Edwar Richardson MD Apr 05, 2019 20:44
--- NOTE | 2019-04-05 23:15 | Progress Note ---
DATE: 04/05/2019 SUBJECTIVE: The patient is on bilateral soft restraints. Continues to be taking herself out of the restraints. Easily agitated and unable to be engaged. The patient is attempting to come out of bed. He is not on contact precautions as of this morning. MENTAL STATUS EXAMINATION: The patient is alert, oriented times self. Mood is agitated. Affect is blunted. Thought process is concrete. Thought content, no suicidal or homicidal ideation. Cognition is impaired. Insight and judgment is impaired. ASSESSMENT: Dementia with behavior disturbance. PLAN: 1. Continue current psychotropic medication. 2. Increase the Zyprexa. 3. We will continue to follow and readjust the medications. Champ Suarez M.D. DR: TAYLOR JOB#: [id number] CC:
[2019-04-06] VITALS: BP 117/60
[2019-04-06 04:00] VITALS: BP 132/63
[2019-04-06] MEDS: LORazepam 1mg tab ORAL PRN (05:51)
--- NOTE | 2019-04-06 07:25 | NUR ---
HAND-OFF: Report given to GIA Knight. Plan of care endorsed.
--- NOTE | 2019-04-06 08:01 | NUR ---
NURSE NOTES: pt. in bed being fed breakfast. pt on cardiac specialist no signs of cardiac or respiratory distress at this time. Call light within reach. Bed in lowest position. Pt is on restrains and keeps moving constantly to try to loosen them up. pt also pulls cardiac specialist constantly. will continue to follow plans of care/
--- NOTE | 2019-04-06 08:04 | NUR ---
CASE MANAGEMENT:REVIEW 04/06/19 SI: UTI ALOC W/CONFUSION, AGITATION AND DEMENTIA 97.8 73 16 132/63 98% ON RA IS: IV SYNTHROID QD ZYPREXA PO TID K-DUR PO QD BENADRYL PO Q4HRS PRN ATIVAN PO Q6HRS REMERON PO QHS : TELEMETRY STATUS DCP: PATIENT IS FROM HOME PLAN: S/P TREATMENT FOR SCABIES ZYPREXA INCREASED FROM PRN TO TID
[2019-04-06 08:25] VITALS: BP 118/77
--- NOTE | 2019-04-06 09:22 | Infectious Diseases Prog Note ---
Assessment/Plan Assessment/Plan A 1.Pyuria, ? UTI teated X 3 days 2. hypertension 3. ? scabies s/p rx 4. thrombocytopenia 5, dementia 6. bipolar disorder 7. Bradycardia 8. Hypothyroidism P 1. continue Diphenhydramine for itching Subjective ROS Limited/Unobtainable: Yes Constitutional: Denies: fever Neurologic: Reports: confusion, other - on restraint Allergies: Coded Allergies: No Known Allergies (Unverified , 04/01/19) Objective Vital Signs Last 24 Hour Vital Signs Date Time Temp Pulse Resp B/P (MAP) Pulse Ox O2 Delivery O2 Flow Rate FiO2 04/06/19 08:28 Room Air 04/06/19 08:25 97.3 50 18 118/77 (91) 94 04/06/19 04:00 97.8 66 16 132/63 (86) 98 04/06/19 04:00 73 04/06/19 00:00 98.0 58 16 117/60 (79) 96 04/06/19 00:00 67 04/05/19 21:00 Room Air 04/05/19 20:00 81 04/05/19 20:00 97.7 66 16 109/59 (76) 97 04/05/19 16:00 97.1 72 18 140/59 (86) 95 04/05/19 15:20 83 04/05/19 12:00 97.6 55 18 135/76 (95) 98 04/05/19 11:53 53 Height (Feet): 5 Height (Inches): 1.00 Weight (Pounds): 130 General Appearance: no acute distress HEENT: mucous membranes moist Respiratory/Chest: lungs clear Cardiovascular: normal rate Abdomen: soft, non tender Extremities: no edema Skin: rash, other - improving Neurologic/Psychiatric: alert, responsive Microbiology Date/Time Source Procedure Growth Status 04/05/19 17:35 Straight Cath Urine Culture - Preliminary NO GROWTH Resulted Laboratory Tests Test 04/05/19 17:35 Urine Color Pale yellow Urine Appearance Slightly cloudy Urine pH 7 (4.5-8.0) Urine Specific [place] 1.010 (1.005-1.035) Urine Protein Negative (NEGATIVE) Urine Glucose (UA) Negative (NEGATIVE) Urine Ketones Negative (NEGATIVE) Urine Blood 1+ (NEGATIVE) H Urine Nitrite Negative (NEGATIVE) Urine Bilirubin Negative (NEGATIVE) Urine Urobilinogen Normal MG/DL (0.0-1.0) Urine Leukocyte Esterase 3+ (NEGATIVE) H Urine RBC 2-4 /HPF (0 - 2) H Urine WBC 15-20 /HPF (0 - 2) H Urine Squamous Epithelial Cells Few /LPF (NONE/OCC) Urine Bacteria Moderate /HPF (NONE) H Current Medications Medications (Trade) Dose Ordered Sig/Lorie Route PRN Reason Start Time Stop Time Status Last Admin Dose Admin Acetaminophen (Tylenol) 650 mg Q6H PRN ORAL Mild Pain/Temp > 100.5 04/01/19 20:50 05/01/19 20:49 Diphenhydramine HCl (Benadryl) 25 mg Q4H PRN ORAL ITCHING 04/04/19 11:45 05/04/19 11:44 04/05/19 13:26 Levothyroxine Sodium (Synthroid) 50 mcg DAILY IV 04/06/19 09:00 05/06/19 08:59 Lorazepam (Ativan) 1 mg Q6H PRN ORAL Agitation 04/01/19 21:00 04/08/19 20:59 04/06/19 05:51 Mirtazapine (Remeron) 15 mg BEDTIME ORAL 04/01/19 21:00 05/01/19 20:59 04/05/19 20:34 Olanzapine (ZyPREXA) 2.5 mg Q6H PRN ORAL agitation 04/02/19 11:00 05/02/19 10:59 04/02/19 13:10 Olanzapine (ZyPREXA) 2.5 mg TID ORAL 04/05/19 18:00 05/05/19 17:59 04/05/19 17:20 Potassium Chloride (K-Dur) 40 meq DAILY ORAL 04/05/19 09:00 05/05/19 08:59 04/05/19 10:00 Naveen Walker MD Apr 06, 2019 09:22
[2019-04-06] MEDS: OLANZapine 2.5mg tab ORAL SCH ×3 (10:05→18:00)
--- NOTE | 2019-04-06 10:40 | CDS Physician Query ---
Clarification is required for compliance, coding accuracy, and to reflect severity of illness for this patient Dear Roe Hughes MD Date: 04/06/2019 [employer] Developer/CDS Name: Sander Charles The patient is a poor historian and is admitted for ataxia as well as for urinary tract infection. The patient is becoming more confused for the past couple of days. The patient does have baseline dementia. The patient also has been ataxic, at fall risk. Also, has a foul-smelling urine. Denies nausea, vomiting, or diarrhea. Denies fever or chills. Denies shortness of breath. Denies cough. The patient is admitted for UTI, ataxia, rule out fall risk. Assessment Electrolyte imbalance Encephalopathy UTI Dehydration "Altered Mental Status / Encephalopathy" documented in progress notes Please indicate the nature and chronicity of the condition below: [] Metabolic Encephalopathy [] Toxic Encephalopathy [] Toxic - Metabolic Encephalopathy [] Encephalopathy, Other [] Dementia with Delirium [] Hypoxic encephalopathy [] Posterior reversible encephalopathy syndrome [] Other: [] Not Applicable Present on Admission: [] Yes [] No [] Clinically Undetermined Physician signature Date Please also document in your Progress Notes and/or Discharge Summary and indicate if the condition was present on admission. MTDD
--- NOTE | 2019-04-06 12:51 | Nephrology Progress Note ---
Assessment/Plan Problem List: (1) UTI (urinary tract infection) (2) Hypothyroid Assessment: TSH over 120 (3) Electrolyte imbalance (4) Dehydration (5) Encephalopathy Assessment Electrolyte imbalance Encephalopathy UTI Dehydration Plan K supplement repeat UA and c/s stop hydrate K supplement IV synthroid Per orders Subjective ROS Limited/Unobtainable: No Constitutional: Reports: malaise Objective Objective Last 24 Hour Vital Signs Date Time Temp Pulse Resp B/P (MAP) Pulse Ox O2 Delivery O2 Flow Rate FiO2 04/06/19 08:28 Room Air 04/06/19 08:25 97.3 50 18 118/77 (91) 94 04/06/19 04:00 97.8 66 16 132/63 (86) 98 04/06/19 04:00 73 04/06/19 00:00 98.0 58 16 117/60 (79) 96 04/06/19 00:00 67 04/05/19 21:00 Room Air 04/05/19 20:00 81 04/05/19 20:00 97.7 66 16 109/59 (76) 97 04/05/19 16:00 97.1 72 18 140/59 (86) 95 04/05/19 15:20 83 Intake and Output 04/05/19 04/06/19 19:00 07:00 Intake Total 510 ml 120 ml Output Total 200 ml 200 ml Balance 310 ml -80 ml Intake Oral 360 ml 120 ml IV Total 150 ml Output Urine Total 200 ml 200 ml Stool Total 0 ml # Voids 2 2 # Bowel Movements 2 Laboratory Tests 04/05/19 17:35: Urine Color Pale yellow, Urine Appearance Slightly cloudy, Urine pH 7, Urine Specific [place] 1.010, Urine Protein Negative, Urine Glucose (UA) Negative, Urine Ketones Negative, Urine Blood 1+H, Urine Nitrite Negative, Urine Bilirubin Negative, Urine Urobilinogen Normal, Urine Leukocyte Esterase 3+H, Urine RBC 2-4H, Urine WBC 15-20H, Urine Squamous Epithelial Cells Few, Urine Bacteria ModerateH Height (Feet): 5 Height (Inches): 1.00 Weight (Pounds): 130 General Appearance: no apparent distress Objective no change Roe Avelar MD Apr 06, 2019 12:51
--- NOTE | 2019-04-06 14:13 | Hematology/Onc Progress Note ---
Assessment/Plan Assessment/Plan Assessment and Recs: # Leukopenia -- multiple etiologies could be related to underlying liver disease , medication-induced, infection versus viral syndrome --> in this case likely due to UTI --> peripheral smear has been ordered and does not show significant abnormalities --> Medications have been reviewed --> Continue to monitor for improvement, trend cbc --> Hep panel and HIV both negative --> US abd ordered to r/o cirrhosis and hepatosplenomegaly - reviewed, negative --> reverse isolation if ANC is <2000 --> Give neupogen if ANC <1000 --> trend 4-->3.2-->3.8 # Thrombocytopenia - potential causes multifactorial, evaluate liver and viral etiologies to begin, also could be related to underlying medications patient has received. --> Hep panel and HIV, both negative --> US abd to evaluate for cirrhosis and hsm ordered - reviewed, negative --> Peripheral smear ordered to evaluate for blasts /schistocytes --> abx and other meds have been reviewed --> ok for ppx if plt >50k w/ either heparin or lovenox --> Transfuse if Plt < 20k and fever, or if Plt < 10k without fever --> plt trend 62-->53k-->54 -->51 --> per id --> likely if persists will recommend a bone marrow biopsy as outpatient # Altered level of consciousness --> likely due to uti --> s/p abx --> Dr. Suarez recs # UTI (urinary tract infection) --> s/p abx # Slightly bradycardic --> per cards # Dvt ppx scds The timing of this note does not necessarily reflect the time of the patient was seen. Greatly appreciate consultation. Subjective Constitutional: Denies: no symptoms, chills, fever, malaise, weakness, other HEENT: Denies: no symptoms, eye pain, blurred vision, tearing, double vision, ear pain, ear discharge, nose pain, nose congestion, throat pain, throat swelling, mouth pain, mouth swelling, other Cardiovascular: Denies: no symptoms, chest pain, edema, irregular heart rate, lightheadedness, palpitations, syncope, other Gastrointestinal/Abdominal: Denies: no symptoms, abdomen distended, abdominal pain, black stools, tarry stools, blood in stool, constipated, diarrhea, difficulty swallowing, nausea, poor appetite, poor fluid intake, rectal bleeding , vomiting, other Genitourinary: Denies: no symptoms, burning, discharge, frequency, flank pain, hematuria, incontinence, pain, urgency, other Neurologic/Psychiatric: Denies: no symptoms, anxiety, depressed, emotional problems, headache, numbness, paresthesia, pre-existing deficit, seizure, tingling, tremors, weakness, other Endocrine: Denies: no symptoms, excessive sweating, flushing, intolerance to cold, intolerance to heat, increased hunger, increased thirst, increased urine, unexplained weight gain, unexplained weight loss, other Allergies: Coded Allergies: No Known Allergies (Unverified , 04/01/19) Subjective 04/04: no acute events, restraints, room air, labs reviewed 04/05: no bleeding, remains confused with soft restraints, no major changes 04/06: plt remains low, no bleeding, no night sweats, labs noted, somewhat itchy Objective Objective Current Medications Medications (Trade) Dose Ordered Sig/Lorie Route PRN Reason Start Time Stop Time Status Last Admin Dose Admin Acetaminophen (Tylenol) 650 mg Q6H PRN ORAL Mild Pain/Temp > 100.5 04/01/19 20:50 05/01/19 20:49 Diphenhydramine HCl (Benadryl) 25 mg Q4H PRN ORAL ITCHING 04/04/19 11:45 05/04/19 11:44 04/06/19 10:05 Levothyroxine Sodium (Synthroid) 100 mcg DAILY IV 04/07/19 09:00 05/06/19 08:59 Lorazepam (Ativan) 1 mg Q6H PRN ORAL Agitation 04/01/19 21:00 04/08/19 20:59 04/06/19 05:51 Mirtazapine (Remeron) 15 mg BEDTIME ORAL 04/01/19 21:00 05/01/19 20:59 04/05/19 20:34 Olanzapine (ZyPREXA) 2.5 mg Q6H PRN ORAL agitation 04/02/19 11:00 05/02/19 10:59 04/02/19 13:10 Olanzapine (ZyPREXA) 2.5 mg TID ORAL 04/05/19 18:00 05/05/19 17:59 04/06/19 13:47 Potassium Chloride (K-Dur) 40 meq BID ORAL 04/06/19 09:38 05/06/19 09:37 04/06/19 10:05 Last 24 Hour Vital Signs Date Time Temp Pulse Resp B/P (MAP) Pulse Ox O2 Delivery O2 Flow Rate FiO2 04/06/19 08:28 Room Air 04/06/19 08:25 97.3 50 18 118/77 (91) 94 04/06/19 04:00 97.8 66 16 132/63 (86) 98 04/06/19 04:00 73 04/06/19 00:00 98.0 58 16 117/60 (79) 96 04/06/19 00:00 67 04/05/19 21:00 Room Air 04/05/19 20:00 81 04/05/19 20:00 97.7 66 16 109/59 (76) 97 04/05/19 16:00 97.1 72 18 140/59 (86) 95 04/05/19 15:20 83 04/05/19 12:00 97.6 55 18 135/76 (95) 98 04/05/19 11:53 53 04/05/19 09:00 Room Air 04/05/19 08:04 46 04/05/19 08:00 97.2 54 18 119/69 (86) 98 04/05/19 04:00 97.5 52 19 145/68 (93) 95 04/05/19 04:00 56 04/05/19 00:00 49 04/05/19 00:00 97.5 60 16 114/62 (79) 95 04/04/19 22:00 97.5 50 16 128/57 (80) 95 04/04/19 21:00 Room Air 04/04/19 20:00 50 04/04/19 20:00 97.5 50 16 128/57 (80) 95 04/04/19 16:00 57 04/04/19 16:00 97.0 60 20 119/71 (87) 94 Intake and Output 04/05/19 04/06/19 19:00 07:00 Intake Total 510 ml 120 ml Output Total 200 ml 200 ml Balance 310 ml -80 ml Intake Oral 360 ml 120 ml IV Total 150 ml Output Urine Total 200 ml 200 ml Stool Total 0 ml # Voids 2 2 # Bowel Movements 2 Labs Test 04/04/19 07:50 04/05/19 06:13 04/05/19 17:35 White Blood Count 3.8 K/UL (4.8-10.8) 6.7 K/UL (4.8-10.8) Red Blood Count 4.58 M/UL (4.20-5.40) 4.63 M/UL (4.20-5.40) Hemoglobin 14.2 G/DL (12.0-16.0) 14.1 G/DL (12.0-16.0) Hematocrit 42.5 % (37.0-47.0) 42.1 % (37.0-47.0) Mean Corpuscular Volume 93 FL (80-99) 91 FL (80-99) Mean Corpuscular Hemoglobin 31.1 PG (27.0-31.0) 30.5 PG (27.0-31.0) Mean Corpuscular Hemoglobin Concent 33.4 G/DL (32.0-36.0) 33.6 G/DL (32.0-36.0) Red Cell Distribution Width 13.2 % (11.6-14.8) 11.7 % (11.6-14.8) Platelet Count 54 K/UL (150-450) 51 K/UL (150-450) Mean Platelet Volume 14.7 FL (6.5-10.1) 13.1 FL (6.5-10.1) Neutrophils (%) (Auto) % (45.0-75.0) % (45.0-75.0) Lymphocytes (%) (Auto) % (20.0-45.0) % (20.0-45.0) Monocytes (%) (Auto) % (1.0-10.0) % (1.0-10.0) Eosinophils (%) (Auto) % (0.0-3.0) % (0.0-3.0) Basophils (%) (Auto) % (0.0-2.0) % (0.0-2.0) Differential Total Cells Counted 100 100 Neutrophils % (Manual) 57 % (45-75) 80 % (45-75) Lymphocytes % (Manual) 28 % (20-45) 10 % (20-45) Monocytes % (Manual) 10 % (1-10) 9 % (1-10) Eosinophils % (Manual) 5 % (0-3) 1 % (0-3) Basophils % (Manual) 0 % (0-2) 0 % (0-2) Band Neutrophils 0 % (0-8) 0 % (0-8) Platelet Estimate Decreased Decreased Platelet Morphology Normal Normal Red Blood Cell Morphology Normal Sodium Level 144 MMOL/L (136-145) Potassium Level 3.4 MMOL/L (3.5-5.1) Chloride Level 108 MMOL/L (98-107) Carbon Dioxide Level 28 MMOL/L (21-32) Anion Gap 8 mmol/L (5-15) Blood Urea Nitrogen 4 mg/dL (7-18) Creatinine 0.9 MG/DL (0.55-1.30) Estimat Glomerular Filtration Rate mL/min (>60) Glucose Level 98 MG/DL (74-106) Uric Acid 2.4 MG/DL (2.6-7.2) Calcium Level 8.2 MG/DL (8.5-10.1) Phosphorus Level 2.9 MG/DL (2.5-4.9) Magnesium Level 2.0 MG/DL (1.8-2.4) Total Bilirubin 0.5 MG/DL (0.2-1.0) Aspartate Amino Transf (AST/SGOT) 72 U/L (15-37) Alanine Aminotransferase (ALT/SGPT) 53 U/L (12-78) Alkaline Phosphatase 45 U/L (46-116) C-Reactive Protein, Quantitative < 0.4 mg/dL (0.00-0.90) Pro-B-Type Natriuretic Peptide 177 pg/mL (0-125) Total Protein 7.0 G/DL (6.4-8.2) Albumin 3.1 G/DL (3.4-5.0) Globulin 3.9 g/dL Albumin/Globulin Ratio 0.8 (1.0-2.7) Thyroid Stimulating Hormone (TSH) 119.241 uiU/mL (0.358-3.740) Free Thyroxine 0.29 NG/DL (0.76-1.46) Free Triiodothyronine 0.6 pg/mL (2.3-4.2) Urine Color Pale yellow Urine Appearance Slightly cloudy Urine pH 7 (4.5-8.0) Urine Specific [place] 1.010 (1.005-1.035) Urine Protein Negative (NEGATIVE) Urine Glucose (UA) Negative (NEGATIVE) Urine Ketones Negative (NEGATIVE) Urine Blood 1+ (NEGATIVE) Urine Nitrite Negative (NEGATIVE) Urine Bilirubin Negative (NEGATIVE) Urine Urobilinogen Normal MG/DL (0.0-1.0) Urine Leukocyte Esterase 3+ (NEGATIVE) Urine RBC 2-4 /HPF (0 - 2) Urine WBC 15-20 /HPF (0 - 2) Urine Squamous Epithelial Cells Few /LPF (NONE/OCC) Urine Bacteria Moderate /HPF (NONE) Micro Microbiology Date/Time Source Procedure Growth Status 04/05/19 17:35 Straight Cath Urine Culture - Preliminary NO GROWTH Resulted Height (Feet): 5 Height (Inches): 1.00 Weight (Pounds): 130 Objective PE: Vitals: reviewed General Appearance: NAD HEENT: normocephalic, atraumatic Neck: non-tender, normal alignment Respiratory/Chest: normal breath sounds bilaterally Cardiovascular/Chest: normal peripheral pulses, normal rate Abdomen: normal bowel sounds, soft, nontender. GT++ Extremities: normal range of motion +++ upper extremity contractures Albert Villegas MD Apr 06, 2019 14:13
[2019-04-06 15:43] VITALS: BP 99/64
[2019-04-06] MEDS: Hydrocortisone 2.5% Oint 30gm TOPIC PRN (16:33)
--- NOTE | 2019-04-06 19:45 | NUR ---
NURSE NOTES: Pt received from [facility] alert and oriented x1, Qat[place] speaking with no acute s/s of distress noted. IV site asymptomatic and patent. Bed in lowest position, call light and belongings within reach.
[2019-04-06 20:00] VITALS: BP 110/60
--- NOTE | 2019-04-06 20:17 | NUR ---
HAND-OFF: Report given to Rosa/rn.
--- NOTE | 2019-04-06 20:22 | General Progress Note ---
Assessment/Plan Problem List: (1) Altered level of consciousness ICD Codes: R40.4 - Transient alteration of awareness SNOMED: 0278794 (2) Confused ICD Codes: R41.0 - Disorientation, unspecified SNOMED: 329664257 (3) Agitation ICD Codes: R45.1 - Restlessness and agitation SNOMED: 482571904 (4) UTI (urinary tract infection) ICD Codes: N39.0 - Urinary tract infection, site not specified SNOMED: 99621781 Status: progressing Assessment/Plan: itching ordered cream and informed id low platlet is improving no bleeding afebrile uti severly elevated tsh on iv synthroid treatment for scabies Subjective ROS Limited/Unobtainable: Yes Allergies: Coded Allergies: No Known Allergies (Unverified , 04/01/19) Subjective itching Objective Last 24 Hour Vital Signs Date Time Temp Pulse Resp B/P (MAP) Pulse Ox O2 Delivery O2 Flow Rate FiO2 04/06/19 15:43 96.8 64 18 99/64 (76) 97 04/06/19 08:28 Room Air 04/06/19 08:25 97.3 50 18 118/77 (91) 94 04/06/19 08:00 66 04/06/19 04:00 97.8 66 16 132/63 (86) 98 04/06/19 04:00 73 04/06/19 00:00 98.0 58 16 117/60 (79) 96 04/06/19 00:00 67 04/05/19 21:00 Room Air Intake and Output 04/05/19 04/06/19 19:00 07:00 Intake Total 510 ml 120 ml Output Total 200 ml 200 ml Balance 310 ml -80 ml Intake Oral 360 ml 120 ml IV Total 150 ml Output Urine Total 200 ml 200 ml Stool Total 0 ml # Voids 2 2 # Bowel Movements 2 Height (Feet): 5 Height (Inches): 1.00 Weight (Pounds): 130 Cardiovascular: normal rate Respiratory/Chest: lungs clear Abdomen: soft Edwar Richardson MD Apr 06, 2019 20:22
[2019-04-07] VITALS: BP 112/58
[2019-04-07 04:00] VITALS: BP 133/76
--- NOTE | 2019-04-07 05:39 | Hematology/Onc Progress Note ---
Assessment/Plan Assessment/Plan Assessment and Recs: # Leukopenia -- multiple etiologies could be related to underlying liver disease , medication-induced, infection versus viral syndrome --> in this case likely due to UTI --> peripheral smear has been ordered and does not show significant abnormalities --> Medications have been reviewed --> Continue to monitor for improvement, trend cbc --> Hep panel and HIV both negative --> US abd ordered to r/o cirrhosis and hepatosplenomegaly - reviewed, negative --> reverse isolation if ANC is <2000 --> Give neupogen if ANC <1000 --> trend 4-->3.2-->3.8 # Thrombocytopenia - potential causes multifactorial, evaluate liver and viral etiologies to begin, also could be related to underlying medications patient has received. --> Hep panel and HIV, both negative --> US abd to evaluate for cirrhosis and hsm ordered - reviewed, negative --> Peripheral smear ordered to evaluate for blasts /schistocytes --> abx and other meds have been reviewed --> ok for ppx if plt >50k w/ either heparin or lovenox --> Transfuse if Plt < 20k and fever, or if Plt < 10k without fever --> plt trend 62-->53k-->54 -->51 --> per id abx prn --> likely if persists will recommend a bone marrow biopsy as outpatient # Altered level of consciousness --> likely due to uti --> s/p abx --> Dr. Suarez recs # UTI (urinary tract infection) --> s/p abx # Slightly bradycardic --> per cards # Dvt ppx scds The timing of this note does not necessarily reflect the time of the patient was seen. Greatly appreciate consultation. Subjective Constitutional: Denies: no symptoms, chills, fever, malaise, weakness, other HEENT: Denies: no symptoms, eye pain, blurred vision, tearing, double vision, ear pain, ear discharge, nose pain, nose congestion, throat pain, throat swelling, mouth pain, mouth swelling, other Cardiovascular: Denies: no symptoms, chest pain, edema, irregular heart rate, lightheadedness, palpitations, syncope, other Respiratory: Denies: no symptoms, cough, shortness of breath, SOB with excertion, SOB at rest, sputum, wheezing, other Gastrointestinal/Abdominal: Denies: no symptoms, abdomen distended, abdominal pain, black stools, tarry stools, blood in stool, constipated, diarrhea, difficulty swallowing, nausea, poor appetite, poor fluid intake, rectal bleeding , vomiting, other Genitourinary: Denies: no symptoms, burning, discharge, frequency, flank pain, hematuria, incontinence, pain, urgency, other Neurologic/Psychiatric: Denies: no symptoms, anxiety, depressed, emotional problems, headache, numbness, paresthesia, pre-existing deficit, seizure, tingling, tremors, weakness, other Endocrine: Denies: no symptoms, excessive sweating, flushing, intolerance to cold, intolerance to heat, increased hunger, increased thirst, increased urine, unexplained weight gain, unexplained weight loss, other Allergies: Coded Allergies: No Known Allergies (Unverified , 04/01/19) Subjective 04/04: no acute events, restraints, room air, labs reviewed 04/05: no bleeding, remains confused with soft restraints, no major changes 04/06: plt remains low, no bleeding, no night sweats, labs noted, somewhat itchy 04/07: no bleeding or chills, labs noted, no distress Objective Objective Current Medications Medications (Trade) Dose Ordered Sig/Lorie Route PRN Reason Start Time Stop Time Status Last Admin Dose Admin Acetaminophen (Tylenol) 650 mg Q6H PRN ORAL Mild Pain/Temp > 100.5 04/01/19 20:50 05/01/19 20:49 Diphenhydramine HCl (Benadryl) 25 mg Q4H PRN ORAL ITCHING 04/04/19 11:45 05/04/19 11:44 04/06/19 20:27 Hydrocortisone (Hydrocortisone) 1 applic Q4H PRN TOPIC Itching 04/06/19 15:10 05/06/19 15:09 04/06/19 16:33 Levothyroxine Sodium (Synthroid) 100 mcg DAILY IV 04/07/19 09:00 05/06/19 08:59 Lorazepam (Ativan) 1 mg Q6H PRN ORAL Agitation 04/01/19 21:00 04/08/19 20:59 04/06/19 05:51 Mirtazapine (Remeron) 15 mg BEDTIME ORAL 04/01/19 21:00 2/8/20 20:59 04/06/19 20:27 Olanzapine (ZyPREXA) 2.5 mg Q6H PRN ORAL agitation 04/02/19 11:00 05/02/19 10:59 04/02/19 13:10 Olanzapine (ZyPREXA) 2.5 mg TID ORAL 04/05/19 18:00 05/05/19 17:59 04/06/19 13:47 Potassium Chloride (K-Dur) 40 meq BID ORAL 04/06/19 09:38 05/06/19 09:37 04/06/19 10:05 Last 24 Hour Vital Signs Date Time Temp Pulse Resp B/P (MAP) Pulse Ox O2 Delivery O2 Flow Rate FiO2 04/07/19 04:00 96.6 61 20 133/76 (95) 96 04/07/19 00:00 98.4 64 20 112/58 (76) 96 04/06/19 21:00 Room Air 04/06/19 20:00 98.2 71 20 110/60 (77) 95 04/06/19 15:43 96.8 64 18 99/64 (76) 97 04/06/19 08:28 Room Air 04/06/19 08:25 97.3 50 18 118/77 (91) 94 04/06/19 08:00 66 04/06/19 04:00 97.8 66 16 132/63 (86) 98 04/06/19 04:00 73 04/06/19 00:00 98.0 58 16 117/60 (79) 96 04/06/19 00:00 67 04/05/19 21:00 Room Air 04/05/19 20:00 81 04/05/19 20:00 97.7 66 16 109/59 (76) 97 04/05/19 16:00 97.1 72 18 140/59 (86) 95 04/05/19 15:20 83 04/05/19 12:00 97.6 55 18 135/76 (95) 98 04/05/19 11:53 53 04/05/19 09:00 Room Air 04/05/19 08:04 46 04/05/19 08:00 97.2 54 18 119/69 (86) 98 Intake and Output 1/14/20 1/15/20 19:00 07:00 Intake Total 270 ml Balance 270 ml Intake Oral 270 ml # Voids 2 # Bowel Movements 2 Labs Test 04/04/19 07:50 04/05/19 06:13 04/05/19 17:35 White Blood Count 3.8 K/UL (4.8-10.8) 6.7 K/UL (4.8-10.8) Red Blood Count 4.58 M/UL (4.20-5.40) 4.63 M/UL (4.20-5.40) Hemoglobin 14.2 G/DL (12.0-16.0) 14.1 G/DL (12.0-16.0) Hematocrit 42.5 % (37.0-47.0) 42.1 % (37.0-47.0) Mean Corpuscular Volume 93 FL (80-99) 91 FL (80-99) Mean Corpuscular Hemoglobin 31.1 PG (27.0-31.0) 30.5 PG (27.0-31.0) Mean Corpuscular Hemoglobin Concent 33.4 G/DL (32.0-36.0) 33.6 G/DL (32.0-36.0) Red Cell Distribution Width 13.2 % (11.6-14.8) 11.7 % (11.6-14.8) Platelet Count 54 K/UL (150-450) 51 K/UL (150-450) Mean Platelet Volume 14.7 FL (6.5-10.1) 13.1 FL (6.5-10.1) Neutrophils (%) (Auto) % (45.0-75.0) % (45.0-75.0) Lymphocytes (%) (Auto) % (20.0-45.0) % (20.0-45.0) Monocytes (%) (Auto) % (1.0-10.0) % (1.0-10.0) Eosinophils (%) (Auto) % (0.0-3.0) % (0.0-3.0) Basophils (%) (Auto) % (0.0-2.0) % (0.0-2.0) Differential Total Cells Counted 100 100 Neutrophils % (Manual) 57 % (45-75) 80 % (45-75) Lymphocytes % (Manual) 28 % (20-45) 10 % (20-45) Monocytes % (Manual) 10 % (1-10) 9 % (1-10) Eosinophils % (Manual) 5 % (0-3) 1 % (0-3) Basophils % (Manual) 0 % (0-2) 0 % (0-2) Band Neutrophils 0 % (0-8) 0 % (0-8) Platelet Estimate Decreased Decreased Platelet Morphology Normal Normal Red Blood Cell Morphology Normal Sodium Level 144 MMOL/L (136-145) Potassium Level 3.4 MMOL/L (3.5-5.1) Chloride Level 108 MMOL/L (98-107) Carbon Dioxide Level 28 MMOL/L (21-32) Anion Gap 8 mmol/L (5-15) Blood Urea Nitrogen 4 mg/dL (7-18) Creatinine 0.9 MG/DL (0.55-1.30) Estimat Glomerular Filtration Rate mL/min (>60) Glucose Level 98 MG/DL (74-106) Uric Acid 2.4 MG/DL (2.6-7.2) Calcium Level 8.2 MG/DL (8.5-10.1) Phosphorus Level 2.9 MG/DL (2.5-4.9) Magnesium Level 2.0 MG/DL (1.8-2.4) Total Bilirubin 0.5 MG/DL (0.2-1.0) Aspartate Amino Transf (AST/SGOT) 72 U/L (15-37) Alanine Aminotransferase (ALT/SGPT) 53 U/L (12-78) Alkaline Phosphatase 45 U/L (46-116) C-Reactive Protein, Quantitative < 0.4 mg/dL (0.00-0.90) Pro-B-Type Natriuretic Peptide 177 pg/mL (0-125) Total Protein 7.0 G/DL (6.4-8.2) Albumin 3.1 G/DL (3.4-5.0) Globulin 3.9 g/dL Albumin/Globulin Ratio 0.8 (1.0-2.7) Thyroid Stimulating Hormone (TSH) 119.241 uiU/mL (0.358-3.740) Free Thyroxine 0.29 NG/DL (0.76-1.46) Free Triiodothyronine 0.6 pg/mL (2.3-4.2) Urine Color Pale yellow Urine Appearance Slightly cloudy Urine pH 7 (4.5-8.0) Urine Specific [place] 1.010 (1.005-1.035) Urine Protein Negative (NEGATIVE) Urine Glucose (UA) Negative (NEGATIVE) Urine Ketones Negative (NEGATIVE) Urine Blood 1+ (NEGATIVE) Urine Nitrite Negative (NEGATIVE) Urine Bilirubin Negative (NEGATIVE) Urine Urobilinogen Normal MG/DL (0.0-1.0) Urine Leukocyte Esterase 3+ (NEGATIVE) Urine RBC 2-4 /HPF (0 - 2) Urine WBC 15-20 /HPF (0 - 2) Urine Squamous Epithelial Cells Few /LPF (NONE/OCC) Urine Bacteria Moderate /HPF (NONE) Height (Feet): 5 Height (Inches): 1.00 Weight (Pounds): 130 Objective PE: Vitals: reviewed General Appearance: NAD HEENT: normocephalic, atraumatic Neck: non-tender, normal alignment Respiratory/Chest: normal breath sounds bilaterally Cardiovascular/Chest: normal peripheral pulses, normal rate Abdomen: normal bowel sounds, soft, nontender. GT++ Extremities: normal range of motion +++ upper extremity contractures Albert Villegas MD Apr 07, 2019 05:39
[2019-04-07 07:29] LABS: HEMATOCRIT 39.8 % (37.0-47.0); HEMOGLOBIN 13.4 G/DL (12.0-16.0); MEAN CORPUSCULAR VOLUME 92 FL (80-99); PLATELET COUNT 62 K/UL (150-450); RED BLOOD COUNT 4.31 M/UL (4.20-5.40); RED CELL DISTRIBUTION WIDTH 13.5 % (11.6-14.8); WHITE BLOOD COUNT 5.8 K/UL (4.8-10.8)
--- NOTE | 2019-04-07 07:35 | NUR ---
HAND-OFF: Report given to GIA Knight. Plan of care endorsed.
[2019-04-07 07:53] LABS: ALANINE AMINOTRANSFERASE 44 U/L (12-78); ALBUMIN/GLOBULIN RATIO 0.8 (1.0-2.7); ALKALINE PHOSPHATASE 43 U/L (46-116); ANION GAP 6 mmol/L (5-15); ASPARTATE AMINO TRANSFERASE 45 U/L (15-37); BILIRUBIN,TOTAL 0.7 MG/DL (0.2-1.0); BLOOD UREA NITROGEN 7 mg/dL (7-18); CALCIUM 8.7 MG/DL (8.5-10.1); CARBON DIOXIDE 32 MMOL/L (21-32); CHLORIDE 109 MMOL/L (98-107); PHOSPHORUS 3.6 MG/DL (2.5-4.9); POTASSIUM 4.1 MMOL/L (3.5-5.1); SODIUM 146 MMOL/L (136-145)
[2019-04-07] MEDS ORDERED: LEVOTHYROXINE125 MCG ORAL (09:16)
[2019-04-07] MEDS ORDERED: ZYPREXA2.5 MG ORAL (09:20)
[2019-04-07] MEDS ORDERED: BENADRYL25 MG ORAL (09:21)
--- NOTE | 2019-04-07 09:30 | NUR ---
DISCHARGE PLANNING CLINICALS FAXED TO [facility] T: [phone]
--- NOTE | 2019-04-07 09:52 | Infectious Diseases Prog Note ---
Assessment/Plan Assessment/Plan A 1.Pyuria, ? UTI teated X 3 days 2. hypertension 3. ? scabies s/p rx 4. thrombocytopenia 5, dementia 6. bipolar disorder 7. Bradycardia 8. Hypothyroidism P observe off antibiotic Subjective ROS Limited/Unobtainable: Yes Constitutional: Denies: fever Allergies: Coded Allergies: No Known Allergies (Unverified , 04/01/19) Objective Vital Signs Last 24 Hour Vital Signs Date Time Temp Pulse Resp B/P (MAP) Pulse Ox O2 Delivery O2 Flow Rate FiO2 04/07/19 04:00 96.6 61 20 133/76 (95) 96 04/07/19 00:00 98.4 64 20 112/58 (76) 96 04/06/19 21:00 Room Air 04/06/19 20:00 98.2 71 20 110/60 (77) 95 04/06/19 15:43 96.8 64 18 99/64 (76) 97 Height (Feet): 5 Height (Inches): 1.00 Weight (Pounds): 134 General Appearance: no acute distress HEENT: mucous membranes moist Respiratory/Chest: lungs clear Cardiovascular: normal rate Abdomen: soft, non tender Skin: rash, other - excoriated on torso Neurologic/Psychiatric: alert, responsive Microbiology Date/Time Source Procedure Growth Status 04/05/19 17:35 Straight Cath Urine Culture - Preliminary Resulted Laboratory Tests Test 04/07/19 06:35 White Blood Count 5.8 K/UL (4.8-10.8) Red Blood Count 4.31 M/UL (4.20-5.40) Hemoglobin 13.4 G/DL (12.0-16.0) Hematocrit 39.8 % (37.0-47.0) Mean Corpuscular Volume 92 FL (80-99) Mean Corpuscular Hemoglobin 31.2 PG (27.0-31.0) H Mean Corpuscular Hemoglobin Concent 33.7 G/DL (32.0-36.0) Red Cell Distribution Width 13.5 % (11.6-14.8) Platelet Count 62 K/UL (150-450) L Mean Platelet Volume 15.3 FL (6.5-10.1) H Neutrophils (%) (Auto) % (45.0-75.0) Lymphocytes (%) (Auto) % (20.0-45.0) Monocytes (%) (Auto) % (1.0-10.0) Eosinophils (%) (Auto) % (0.0-3.0) Basophils (%) (Auto) % (0.0-2.0) Neutrophils % (Manual) Pending Lymphocytes % (Manual) Pending Platelet Estimate Pending Platelet Morphology Pending Sodium Level 146 MMOL/L (136-145) H Potassium Level 4.1 MMOL/L (3.5-5.1) Chloride Level 109 MMOL/L (98-107) H Carbon Dioxide Level 32 MMOL/L (21-32) Anion Gap 6 mmol/L (5-15) Blood Urea Nitrogen 7 mg/dL (7-18) Creatinine 1.0 MG/DL (0.55-1.30) Estimat Glomerular Filtration Rate mL/min (>60) Glucose Level 93 MG/DL (74-106) Calcium Level 8.7 MG/DL (8.5-10.1) Phosphorus Level 3.6 MG/DL (2.5-4.9) Magnesium Level 2.0 MG/DL (1.8-2.4) Total Bilirubin 0.7 MG/DL (0.2-1.0) Aspartate Amino Transf (AST/SGOT) 45 U/L (15-37) H Alanine Aminotransferase (ALT/SGPT) 44 U/L (12-78) Alkaline Phosphatase 43 U/L (46-116) L C-Reactive Protein, Quantitative 3.0 mg/dL (0.00-0.90) H Total Protein 6.8 G/DL (6.4-8.2) Albumin 3.0 G/DL (3.4-5.0) L Globulin 3.8 g/dL Albumin/Globulin Ratio 0.8 (1.0-2.7) L Thyroid Stimulating Hormone (TSH) 128.734 uiU/mL (0.358-3.740) Current Medications Medications (Trade) Dose Ordered Sig/Lorie Route PRN Reason Start Time Stop Time Status Last Admin Dose Admin Acetaminophen (Tylenol) 650 mg Q6H PRN ORAL Mild Pain/Temp > 100.5 04/01/19 20:50 05/01/19 20:49 Diphenhydramine HCl (Benadryl) 25 mg Q4H PRN ORAL ITCHING 04/04/19 11:45 05/04/19 11:44 04/06/19 20:27 Hydrocortisone (Hydrocortisone) 1 applic Q4H PRN TOPIC Itching 04/06/19 15:10 05/06/19 15:09 04/06/19 16:33 Levothyroxine Sodium (Synthroid) 100 mcg DAILY IV 04/07/19 09:00 05/06/19 08:59 Lorazepam (Ativan) 1 mg Q6H PRN ORAL Agitation 04/01/19 21:00 04/08/19 20:59 04/06/19 05:51 Mirtazapine (Remeron) 15 mg BEDTIME ORAL 04/01/19 21:00 05/01/19 20:59 04/06/19 20:27 Olanzapine (ZyPREXA) 2.5 mg Q6H PRN ORAL agitation 04/02/19 11:00 05/02/19 10:59 04/02/19 13:10 Olanzapine (ZyPREXA) 2.5 mg TID ORAL 04/05/19 18:00 05/05/19 17:59 04/06/19 13:47 Potassium Chloride (K-Dur) 40 meq BID ORAL 04/06/19 09:38 05/06/19 09:37 04/06/19 10:05 Naveen Walker MD Apr 07, 2019 09:52
[2019-04-07] MEDS: OLANZapine 2.5mg tab ORAL SCH ×2 (10:11→14:32)
[2019-04-07] MEDS: Hydrocortisone 2.5% Oint 30gm TOPIC PRN (10:19)
[2019-04-07] MEDS: LORazepam 1mg tab ORAL PRN (11:17)
--- NOTE | 2019-04-07 11:41 | NUR ---
DISCHARGE PLANNED PATIENT WILL DISCHARGE TO [facility] SKILLED T: [phone] FOR NURSE TO NURSE REPORT [facility] HAS BEEN ARR[facility] FOR 1330 PICK SPOKE WITH [employer] KRISTI AND PROVIDED NAME AND ADDRESS OF FACILITY
--- NOTE | 2019-04-07 13:53 | Nephrology Progress Note ---
Assessment/Plan Problem List: (1) UTI (urinary tract infection) (2) Hypothyroid Assessment: TSH over 120 (3) Electrolyte imbalance (4) Dehydration (5) Encephalopathy Assessment Electrolyte imbalance Encephalopathy UTI Dehydration Plan K supplement repeat UA and c/s stop hydrate K supplement IV synthroid Per orders Subjective ROS Limited/Unobtainable: No Constitutional: Reports: malaise, weakness Objective Objective Last 24 Hour Vital Signs Date Time Temp Pulse Resp B/P (MAP) Pulse Ox O2 Delivery O2 Flow Rate FiO2 04/07/19 09:00 Room Air 04/07/19 04:00 96.6 61 20 133/76 (95) 96 04/07/19 00:00 98.4 64 20 112/58 (76) 96 04/06/19 21:00 Room Air 04/06/19 20:00 98.2 71 20 110/60 (77) 95 04/06/19 15:43 96.8 64 18 99/64 (76) 97 Intake and Output 04/06/19 04/07/19 19:00 07:00 Intake Total 270 ml 200 ml Balance 270 ml 200 ml Intake Oral 270 ml 200 ml # Voids 2 3 # Bowel Movements 2 Laboratory Tests 04/07/19 06:35: White Blood Count 5.8, Red Blood Count 4.31, Hemoglobin 13.4, Hematocrit 39.8, Mean Corpuscular Volume 92, Mean Corpuscular Hemoglobin 31.2H, Mean Corpuscular Hemoglobin Concent 33.7, Red Cell Distribution Width 13.5, Platelet Count 62L, Mean Platelet Volume 15.3H, Neutrophils (%) (Auto) , Lymphocytes (%) (Auto) , Monocytes (%) (Auto) , Eosinophils (%) (Auto) , Basophils (%) (Auto) , Differential Total Cells Counted 100, Neutrophils % (Manual) 75, Lymphocytes % ( Manual) 18L, Monocytes % (Manual) 5, Eosinophils % (Manual) 1, Basophils % ( Manual) 1, Band Neutrophils 0, Platelet Estimate DecreasedL, Platelet Morphology Normal, Sodium Level 146H, Potassium Level 4.1, Chloride Level 109H, Carbon Dioxide Level 32, Anion Gap 6, Blood Urea Nitrogen 7, Creatinine 1.0, Estimat Glomerular Filtration Rate , Glucose Level 93, Calcium Level 8.7, Phosphorus Level 3.6, Magnesium Level 2.0, Total Bilirubin 0.7, Aspartate Amino Transf (AST/SGOT) 45H, Alanine Aminotransferase (ALT/SGPT) 44, Alkaline Phosphatase 43L, C-Reactive Protein, Quantitative 3.0H, Total Protein 6.8, Albumin 3.0L, Globulin 3.8, Albumin/Globulin Ratio 0.8L, Thyroid Stimulating Hormone (TSH) 128.734H Height (Feet): 5 Height (Inches): 1.00 Weight (Pounds): 134 General Appearance: agitated Cardiovascular: bradycardia Respiratory/Chest: decreased breath sounds Abdomen: soft Objective no change Roe Avelar MD Apr 07, 2019 13:53
--- NOTE | 2019-04-07 14:35 | NUR ---
NURSE NOTES: pt dc via ambulance to SNF in stable condition. Report given to [facility], they will accept Pt. family caregiver was notified of DC. pt. Iv was DC, site is not bleeding, VS. within normal limit. monitoring specialist off, Hospital ID band off from pt. DC package and Pt belonging were given to ambulance personnel. Pt. unable to sign for belonging sheet pt is confused.
[2019-04-07] MEDS ORDERED: NS 275ml ONE (14:59)
[2019-04-07] MEDS ORDERED: Tubing IV Secondary IV ONE (14:59)
--- NOTE | 2019-04-07 17:46 | Progress Note ---
DATE: 04/07/2019 SUBJECTIVE: The patient is confused, disoriented, attempting to come out of bed. Not following redirections due to confusion. MENTAL STATUS EXAMINATION: The patient is alert, confused, disoriented. Mood is agitated. Affect is flat. Thought process is concrete. Thought content, no suicidal or homicidal ideation. Cognition is impaired. Insight and judgment is impaired. ASSESSMENT: Dementia with behavioral disturbance. PLAN: 1. We will continue current medication. 2. Provide the patient with reality orientation. Champ Suarez M.D. DR: DICK JOB#: [id number] CC:
--- NOTE | 2019-04-08 13:30 | Geriatric Medicine Prog Note ---
DATE: 04/06/2019 NOTE: POOR AUDIO QUALITY SUBJECTIVE: The patient . OBJECTIVE: VITAL SIGNS: Stable. LUNGS: Clear. CARDIOVASCULAR: Regular. . She has hypothyroidism increase . Tano England M.D. DR: JESSICA JOB#: [id number] CC:
--- NOTE | 2019-04-09 09:46 | Discharge Summary ---
Discharge Summary Discharge Summary _ DATE OF ADMISSION: 04/01/2019 DATE OF DISCHARGE: 04/07/2019 DISCHARGED BY: Dr. Richardson REASON FOR ADMISSION: 83 years old female with past medical history of hypertension, heart disease, bipolar disorder, dementia, presented for evaluation due to altered mental status. Son provided history. Per son, patient had 3 days of worsening confusion. She could no longer remember her children. Son also noted instability of the gait and believed that she was a high fall risk. Son also noted foul-smelling urine over the past few days. No fever or chills. No vomiting or diarrhea. Upon evaluation patient was bradycardic with heart rate 49, otherwise vital signs were stable. Laboratory work-up revealed no leukocytosis , stable hemoglobin and hematocrit , platelet counts low -63. Urinalysis revealed +2 protein, +3 ketones, pyuria, and few bacteria. Sodium 146. BUN 24, creatinine 1.1. Glucose 130. AST 43, ALT 30. Albumin 3.3. Lipase 136. Troponin negative EKG revealed sinus bradycardia, no acute ischemic changes , no block. CT of the head revealed no acute intracranial pathology. Age-related volume loss and chronic periventricular deep white matter ischemic changes noted. 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 In emergency department patient received empiric antibiotics and subsequently admitted for further management. CONSULTANTS: ID specialist Dr. Walker polisher implant Dr. Avelar log sorting supervisor/oncologist Dr. Villegas psychiatrist Dr. Suarez structural shop helper Dr. England [facility] COURSE: Patient admitted to telemetry floor. Patient started on empiric antibiotic as per ID recommendation. Urine culture on 2 different occasions revealed no evidence of growth. Patient remained afebrile, no leukocytosis. Patient had pyuria and likely urinary tract infection, which was treated for 3 days. Patient has questionable scabies and received treatment as per ID specialist. Platelet count was closely monitored. Face Boss followed. Hepatitis panel negative. HIV test nonreactive. Ultrasound of the abdomen was negative. Medication reviewed. Face Boss recommended if thrombocytopenia persists, proceed with bone marrow biopsy as outpatient. Patient also noted to have leukopenia, which resolved ; prior to discharge WBC 5.8. Platelet count remains low . Recommended bone marrow aspiration to be arranged as outpatient. Patient was hydrated. Renal parameters and electrolytes were closely monitored. Electrolytes corrected as needed. Nephrotoxins were avoided. Noted significantly elevated TSH and low free T4 and T3. Strategic Advisor followed. Patient received IV Synthroid and the dose was uptitrated. Patient will need close monitoring of thyroid function panel at the facility and adjust the dose appropriately. Telemetry showed sinus rhythm with bundle branch block and occasional PAC. Bradycardia resolved and likely was due to uncontrolled hypothyroidism. Fall precaution maintained. Psychiatrist followed. Per psychiatrist patient had dementia with behavioral disturbances. Psychiatric medication regimen was optimized. Reality orientation provided. Mental status was closely monitored. Patient had underlying dementia with behavioral disturbances as per psychiatrist. Patient also had encephalopathy possibly secondary to UTI as well as uncontrolled hypothyroidism. Patient clinically stabilized. Placement was arranged to the senior living facility for continuation of care. FINAL DIAGNOSES: Pyuria, possible UTI status post treatment for 3 days Altered mental status Encephalopathy Dehydration Possible scabies status post treatment Thrombocytopenia Hypertension Dementia with behavioral disturbances Bipolar disorder Bradycardia likely due to uncontrolled hypothyroidism resolved Hypothyroidism uncontrolled with a high TSH Electrolyte imbalance DISCHARGE MEDICATIONS: See Medication Reconciliation list. DISCHARGE INSTRUCTIONS: Patient was discharged to the senior living facility. Follow up with medical doctor at the facility. I have been assigned to dictate discharge summary for this account. I was not involved in the patient's management. Sue Lundberg NP Apr 09, 2019 09:46
--- NOTE | 2019-04-12 14:15 | Progress Note ---
DATE: 04/08/2019 SUBJECTIVE: The patient is confused, less agitated than previous encounter.and at times responsive to stimuli. MENTAL STATUS EXAMINATION: The patient is alert, confused, disoriented. Mood is anxious to neutral. Affect is flat. Thought process, there is a paucity of thought content. Thought content, no suicidal or homicidal ideation. Cognition is impaired. Insight and judgment non-existent. ASSESSMENT: Dementia with behavioral disturbance. PLAN: 1. We will continue with current medications. 2. Provide the patient with reality orientation and supportive therapy. Champ Suarez M.D. DR: NOE JOB#: [id number] CC: SUSIE
== END 2019-04-07 15:00 | DRG 689 ==
LOC: EMR 12:30 → 2E 12:40 → EDBEDREQ 12:49 → 2E 18:44
DX: N39.0 Urinary tract infection, site not specified (principal); G92 Toxic encephalopathy; F03.91 Unspecified dementia, unspecified severity, with behavioral disturbance; R27.0 Ataxia, unspecified; I10 Essential (primary) hypertension; F31.9 Bipolar disorder, unspecified; I25.10 Atherosclerotic heart disease of native coronary artery without angina pectoris; E78.5 Hyperlipidemia, unspecified; G40.909 Epilepsy, unspecified, not intractable, without status epilepticus; E86.0 Dehydration; B86 Scabies; R00.1 Bradycardia, unspecified; E03.9 Hypothyroidism, unspecified; E87.8 Other disorders of electrolyte and fluid balance, not elsewhere classified; Z79.02 Long term (current) use of antithrombotics/antiplatelets; D69.6 Thrombocytopenia, unspecified
CPT/HCPCS: 36415; 70450; 76700; 80048; 80053; 80061; 80178; 81001; 81003; 82533; 82607; 82746; 82977; 83036; 83690; 83735; 83880; 84100; 84439; 84443; 84481; 84484; 84550; 85007; 85025; 86140; 86703; 86705; 86709; 86803; 87086; 87340; 93005; 96365; 96375; 99285; J8499